=== PATIENT | female | born 1950 | race Caucasian/White ===

== ENCOUNTER 2020-07-13 07:41 | Outpatient (CLI) | payer MEDICARE, SELFPAY ==
--- NOTE | ~2020-07-13 | MM_ITS ---
EXAMINATION: MM screening marilin BI w era HISTORY: Screening TECHNIQUE: Craniocaudal and mediolateral oblique 3-D tomosynthesis images were obtained and synthetic 2-D images were generated. CAD analysis was submitted and interpreted. COMPARISON: Comparison to multiple prior studies sequentially, with oldest reviewed study dated 05/13. BREAST PARENCHYMAL COMPOSITION: The breasts are extremely dense, which lowers the sensitivity of mamm ography. FINDINGS: There is no evidence of suspicious mass, calcification, or architectural distortion to sugg est malignancy in either breast. There has been no suspicious interval change. IMPRESSION: 1. No mammographic evidence of malignancy. 2. Recommend routine screening mammography in one year. BI-RADS Category 1: Negative Reviewed, dictated and finalized at location A.
== END 2020-07-13 07:42 | disposition home or self-care (01) ==
LOC: ANHIMG 07:49
PROVIDERS: PCP Internal Medicine; Visit Provider Obstetrics & Gynecology
DX: Z12.31 Encounter for screening mammogram for malignant neoplasm of breast (principal)
CPT/HCPCS: 77063; 77067

== ENCOUNTER 2020-08-24 07:37 | Outpatient (CLI) | payer MEDICARE, SELFPAY ==
--- NOTE | ~2020-08-24 | XR_ITS ---
EXAMINATION: XR barium swallow DATE: 08/24/2020 08:20 [employer] INDICATION: Abnormal CT examination. TECHNIQUE: Thick barium contrast with gas effervescent crystals were administered orally. Fluoroscop ic images of the esophagus were obtained in various projections. The hypopharynx was also examined. T hereafter, overhead images of the thoracic esophagrus were performed. Fluroscopy time 0.4 minutesDap 0.73. 43 fluoroscopic images. FINDINGS: The esophagus is normal in caliber, without mucosal lesions or strictures. There is normal esophageal peristalsis. There is a mid esophageal diverticulum. There is no hiatal hernia. No discr eet episode of gastroesophageal reflux is seen during the course of this study. IMPRESSION: 1. Mid esophageal diverticulum. Otherwise, unremarkable esophagus.. Reviewed, dictated and finalized at location A. [employer]
== END 2020-08-24 07:38 | disposition home or self-care (01) ==
PROVIDERS: PCP Internal Medicine; Visit Provider Internal Medicine Gastroenterology
DX: R93.3 Abnormal findings on diagnostic imaging of other parts of digestive tract (principal); K57.10 Diverticulosis of small intestine without perforation or abscess without bleeding
CPT/HCPCS: 74220

== ENCOUNTER 2021-07-17 07:06 | Outpatient (CLI) | payer MEDICARE, SELFPAY ==
--- NOTE | ~2021-07-17 | MM_ITS ---
EXAMINATION: MM screening marilin BI w era HISTORY: Screening mammogram TECHNIQUE: Craniocaudal and mediolateral oblique 3-D tomosynthesis images were obtained and synthetic 2-D images were generated. CAD analysis was submitted and interpreted. COMPARISON: 11/13/2019, 07/06/2019, 07/01/2018 bilateral digital screening mammogram examinations BREAST PARENCHYMAL COMPOSITION: The breasts are extremely dense, which lowers the sensitivity of mamm ography. FINDINGS: Occasional benign calcifications. There is no evidence of suspicious mass, calcification, o r architectural distortion to suggest malignancy in either breast. There has been no suspicious inter deny change. IMPRESSION: 1. No mammographic evidence of malignancy. 2. Recommend routine screening mammography in one year. BI-RADS Category 2: Benign finding(s). Reviewed, dictated and finalized at location A.
== END 2021-07-17 07:07 | disposition home or self-care (01) ==
LOC: ANHIMG 07:09
PROVIDERS: PCP Family Medicine; Visit Provider Obstetrics & Gynecology
DX: Z12.31 Encounter for screening mammogram for malignant neoplasm of breast (principal)
CPT/HCPCS: 77063; 77067

== ENCOUNTER 2022-07-19 07:38 | Outpatient (CLI) | payer MEDICARE, SELFPAY ==
--- NOTE | ~2022-07-19 | MM_ITS ---
EXAMINATION: MM screening marilin BI w era HISTORY: Screening TECHNIQUE: Craniocaudal and mediolateral oblique 3-D tomosynthesis images were obtained and synthetic 2-D images were generated. CAD analysis was submitted and interpreted. COMPARISON: Comparison to multiple prior studies sequentially, with oldest reviewed study dated 06/25. BREAST PARENCHYMAL COMPOSITION: The breasts are extremely dense, which lowers the sensitivity of mamm ography. FINDINGS: There is a developing asymmetry centered in the upper outer quadrant of the left breast. Th e right breast is stable without evidence for malignancy. IMPRESSION: 1. Developing left breast asymmetry centered in the upper outer quadrant of the left breast. 2. Additional mammographic views and possible breast ultrasound are recommended. BI-RADS Category 0: Incomplete: Needs additional imaging evaluation. Reviewed, dictated and finalized at location A. IMPRESSION: 1. Developing left breast asymmetry centered in the upper outer quadrant of the left breast. 2. Additional mammographic views and possible breast ultrasound are recommended . BI-RADS Category 0: Incomplete: Needs additional imaging evaluation.
== END 2022-07-19 07:39 | disposition home or self-care (01) ==
PROVIDERS: PCP Family Medicine; Visit Provider Obstetrics & Gynecology
DX: Z12.31 Encounter for screening mammogram for malignant neoplasm of breast (principal); R92.8 Other abnormal and inconclusive findings on diagnostic imaging of breast
CPT/HCPCS: 77063; 77067

== ENCOUNTER 2022-08-03 10:25 | Outpatient (CLI) | payer MEDICARE, SELFPAY ==
--- NOTE | ~2022-08-03 | MMUS_ITS ---
EXAMINATION: MM diagnostic marilin LT w era, US breast LT complete HISTORY: Whole left breast ultrasound TECHNIQUE: Additional 3-D tomosynthesis images of the left breast were performed and synthetic 2-D im ages were generated. CAD analysis was submitted and interpreted. High resolution complete left breast ultrasound was performed. COMPARISON: Comparison to multiple prior studies sequentially, with oldest reviewed study dated 06/27. BREAST PARENCHYMAL COMPOSITION: The breasts are extremely dense, which lowers the sensitivity of mamm ography FINDINGS: MAMMOGRAPHIC FINDINGS: There are no discrete masses, calcifications or architectural distortion in the left breast. ULTRASOUND: Complete left breast ultrasound including all 4 quadrants in the subareolar location: Normal heterogeneous echotexture without focal solid or cystic mass. IMPRESSION: 1. No evidence for malignancy in the left breast. 2. Routine yearly screening mammogram and regular clinical breast examination are recommended. BI-RADS Category 1: Negative Reviewed, dictated and finalized at location A. IMPRESSION: 1. No evidence for malignancy in the left breast. 2. Routine yearly screening mammogram and regular clinical breast examination a re recommended. BI-RADS Category 1: Negative
[2022-08-03 12:34] LABS: Albumin Level 4.1 g/dL (3.5-5.1); Anion Gap 14 mmol/L (8-16); Blood Urea Nitrogen 13 mg/dL (7-17); Calcium 8.1 mg/dL (8.4-10.2); Carbon Dioxide 23 mmol/L (22-30); Chloride 109 mmol/L (98-107); Estimated Glomerular Filt Rate 34; Glucose 75 mg/dL (65-110); Phosphorus 6.3 mg/dL (2.5-4.5); Potassium 4.5 mmol/L (3.4-5.0); Sodium 146 mmol/L (137-145)
[2022-08-03 12:40] LABS: Creatinine Urine 22.5 mg/dL; Total Protein Urine Random 59 mg/dL; Ur Ttl Prot Creatinine Ratio 2.62 mg/mg (0-0.20)
== END 2022-08-03 10:26 | disposition home or self-care (01) ==
PROVIDERS: PCP Family Medicine; Visit Provider Obstetrics & Gynecology
DX: R92.8 Other abnormal and inconclusive findings on diagnostic imaging of breast (principal)
CPT/HCPCS: 36415; 76641; 77061; 77065; 80069; 82570; 84156; G0279

== ENCOUNTER 2022-08-17 02:31 | Day surgery (SDC) | payer MEDICARE, SELFPAY ==
--- NOTE | 2022-08-06 15:23 | PC.NURSE ---
Report to the Outpatient Waiting Room, entrance under the green pavilion located off [facility], at time _07 on date _08/17/22 . Planned Procedure Time: _914 . Time changes happen often and if your time is changed the preop area will call you the afternoon before. - You and your visitor will be asked to self-screen and do not enter if you have any COVID symptoms. - We encourage only one visitor and NO visitors under age 16 are allowed at this time. Your visitor will receive communication by the phone number that is given day of service. - The patient visitor is requested to social distance or may leave the building when not with patient due to restrictions. - A mask is required within the hospital. Patients may have clear liquids (water, carbonated beverages, clear teas, apple juice) until 3 hours prior to surgery with a maximum of 20 ounces. - No food from midnight until time of surgery - Infants may have breast milk until 4 hours before surgery, formula 6 hours prior to surgery. - Children will be allowed to drink immediately following surgery. If applicable, please bring a bottle or sippy cup to assist with drinking. Juice, water, soda, and popsicles are readily available. For infants on formula, please bring formula the day of surgery. Pacifiers are allowed. Take the following medications with a SIP of water the morning of surgery: AMLODIPINE Medications to discontinue per physician ALL VITAMINS 3 DAYS PRE OP Date to take last dose____08/13/22 Please no make-up, nail chinese, hairspray, perfume, deodorant, or body powder the day of surgery. No jewelry (including any body piercings) or valuables the day of surgery, leave them at home. Please take a shower or bath the night before, or the morning of, surgery with an antibacterial soap. Wear comfortable, loose fitting clothing. Children are encouraged to wear pajamas. - Jewelry must be removed prior to entering the operating room. Rings and piercings that are not removed may be cut off. - The hospital will not accept responsibility for valuables. - Please leave all valuables, including medications, at home the day of surgery. If you are going home after surgery, a licensed milk pickup driver must drive you home. - NO public transportation without another adult. - We recommend that an adult stay with you for 24 hours following discharge. - We also recommend that you do not drive, make important decision, drink alcoholic beverages, or take any drugs that were not prescribed by your health care provider for at least 24 hours after your discharge time. For Pediatric surgeries, we recommend two adults accompany the child home. Follow any additional instructions given to you from your surgeon. If you or anyone in your household have experienced Covid symptoms in the past week, please notify your surgeon or the nurse liaison at the phone number below for possible testing. Telephone instructions given to ___PATIENT and asked if any additional questions and then verbalized understanding. Patient advised to call surgeon office or pre surgery nurse liaison [phone] if any additional questions.
[2022-08-06 15:43] VITALS: BMI 15.5
--- NOTE | 2022-08-15 12:30 | P.HP_ITS ---
H&P: HPI History of Present Illness Date/Time: 08/15/22 12:30 Chief Complaint: High-grade dysplasia of vulva Narrative: Cyst 72-year-old female with lesion on her vulva. All local biopsy showed a high-grade dysplasia. She will undergo laser destruction as no evidence of cancer is present. Risks and benefits reviewed REPLACED BY [facility] Past Medical History Medical History (Updated 08/15/22 @ 12:33 by Du Ace MD) Anemia Former smoker GERD (gastroesophageal reflux disease) Surgical History Surgical History (Updated 09/27/19 @ 17:45 by Jo Ann Bajwa CRNA) History of esophagogastroduodenoscopy (EGD) Hx of cholecystectomy S/P left knee arthroscopy Social History Social History Years smoked: 22 Smoking status: Former smoker Tobacco type: cigarettes Second hand tobacco smoke exposure: No Smoking end date: 09/30/16 Gender identity (if verbalized by the patient): Female Spiritual care concerns: No Meds Home Medications and Allergies Home Medications Medication Instructions Recorded Confirmed Type furosemide 20 mg tablet 10 mg PO PRN PRN Edema 09/16/19 08/06/22 History lansoprazole 30 mg capsule,delayed 30 mg PO DAILY 09/16/19 08/06/22 History release amlodipine 5 mg tablet 5 mg PO DAILY 08/06/22 08/06/22 History luydnhks-ehx-imeqr ac 400 1 tablet PO EVERY OTHER DAY 08/06/22 08/06/22 History mcg-calcium carb 500 mg-vit K1 20 mcg tablet tramadol 50 mg tablet 50 mg PO TID 08/06/22 08/06/22 History Allergies Allergy/AdvReac Type Severity Reaction Status Date / Time acetaminophen Allergy Unknown Itching Verified 08/06/22 15:14 clindamycin Allergy Unknown Swelling Verified 08/06/22 15:14 methylprednisolone Allergy Unknown Hives / Verified 08/06/22 15:14 Red Face prednisone Allergy Unknown Hives / Verified 08/06/22 15:14 Red Face Exam Const: General: cooperative, healthy appearing, comfortable, thin and underweight Orientation/consciousness: oriented to person, oriented to place and oriented to time HENMT: Head: normal to inspection Resp: Effort & Inspection: normal respiratory effort Cardio: Rate: regular rate Rhythm: regular rhythm Heart sounds: S1 normal heart sound present and S2 normal heart sound present GI: Inspection: normal to inspection and scaphoid : External Female Exam: lesion (Sternal lesions seen) Bimanual exam- vagina & uterus: normal bimanual exam Assessment and Plan Assessment and plan (1) Vulvar intraepithelial neoplasia: Code(s): N90.3 - Dysplasia of vulva, unspecified Status: Acute Plan CO2 laser of this lesion
--- NOTE | 2022-08-16 13:51 | P.PNAN_ITS ---
Anes - Initial Pre Proc Eval Procedure: Operation Date: 08/17/22 09:15 Proposed Procedures p CO2 Laser of Ablation of Vulva Lesion - Du Ace MD Date/Time: 08/16/22 13:51 Surgeon: Du Ace MD Pre Op Diagnosis: vulvar lesion, high grade epithelial lesion Patient Data Age: 72 Gender: F Height: 1.57 m Weight: 38.6 kg Allergies Allergy/AdvReac Type Severity Reaction Status Date / Time acetaminophen Allergy Unknown Itching Verified 08/06/22 15:14 clindamycin Allergy Unknown Swelling Verified 08/06/22 15:14 methylprednisolone Allergy Unknown Hives / Verified 08/06/22 15:14 Red Face prednisone Allergy Unknown Hives / Verified 08/06/22 15:14 Red Face Home Medications Medication Instructions Recorded Confirmed Type furosemide 20 mg tablet 10 mg PO PRN PRN Edema 09/16/19 08/06/22 History lansoprazole 30 mg capsule,delayed 30 mg PO DAILY 09/16/19 08/06/22 History release amlodipine 5 mg tablet 5 mg PO DAILY 08/06/22 08/06/22 History ehukxmnt-vib-fmman ac 400 1 tablet PO EVERY OTHER DAY 08/06/22 08/06/22 History mcg-calcium carb 500 mg-vit K1 20 mcg tablet tramadol 50 mg tablet 50 mg PO TID 08/06/22 08/06/22 History Patient hx anesthesia problems: none Family hx anesthesia problems: none Results Review: All pre-operative results and documents have been reviewed as part of the pre- operative evaluation. [facility] Past Medical History Medical History (Updated 08/16/22 @ 13:52 by Fer Valencia MD) Anemia Former smoker GERD (gastroesophageal reflux disease) HTN (hypertension) Osteoarthritis Vulvar intraepithelial neoplasia Surgical History Surgical History (Updated 09/27/19 @ 17:45 by Jo Ann Bajwa CRNA) History of esophagogastroduodenoscopy (EGD) Hx of cholecystectomy S/P left knee arthroscopy Social History Social History Years smoked: 22 Smoking status: Former smoker Tobacco type: cigarettes Second hand tobacco smoke exposure: No Smoking end date: 09/30/16 Living arrangements: alone Gender identity (if verbalized by the patient): Female Spiritual care concerns: No Anes - Eval Final PreProcedure Day of Procedure 08/16/22 13:51 Patient weight: normal Heart: regular rate and rhythm Lungs: clear to auscultation Airway: Mallampati scale class II Neurological: alert and oriented Last oral intake: >/= 8 hours ASA classification: II Anesthetic plan: proceed Anesthesia type and monitoring: general GIVS and standard monitoring Results Review: All pre-operative results and documents have been reviewed as part of the pre- operative evaluation. Informed Consent: The patient's anesthetic plan and its attendant risks and benefits were discussed with the patient/family/POA. Questions were solicited and answers provided to the satisfaction of the patient/family/POA.
[2022-08-17] VITALS (10 sets, daily range): BP systolic 157–200; BP diastolic 73–108; PULSE 64–77; RESP 12–18; TEMP 36.2–36.4; O2SAT 98–100
--- NOTE | 2022-08-17 06:53 | WPDHPUPDATE1 ---
History and Physical Update Update Date/Time: 08/17/22 06:53 History and Physical has been reviewed, including an updated exam of the patient. There are NO changes in the patient's condition. Risks, benefits, and alternatives have been discussed and questions answered. Patient agrees to proceed with procedure.
[2022-08-17] MEDS: LACTATED RINGERS 1,000 ML 30 ML IV CONT (08:16)
[2022-08-17] MEDS: SILVER SULFADIAZINE 1% CR 50 GM JAR (*BKC) 1 APPLIC TOPICAL (09:40)
--- NOTE | 2022-08-17 09:43 | W.PM.PROC2 ---
Procedure Note - Detailed Date of Procedure 08/17/22 Pre-op Diagnosis vulvar lesion, high grade epithelial lesion Post-op Diagnosis Same Procedure Performed CO2 laser over to the Surgeon Du Ace MD Anesthesia MAC Indications this is 72 biopsy high-grade vulvar intraepithelial neoplasia Findings 2x3cm area high-grade vulvar intraepithelial neoplasia was seen along perineum and left labia Description of Procedure patient is prepped draped dorsal position. Direct anesthesia speculum placed posterior. The this was and vinegar placed perineal left the lesion was laser 10 per 2nd until it was completely desiccated blood loss was she tolerated procedure sponge needle and instrument counts were correct. Were immediate complications Estimated Blood Loss 0 Drains No Packing No Pathology None sent Complications No immediate complications Condition Stable Disposition PACU
[2022-08-17] MEDS: fentaNYL CITRATE INJ (*CRX) 100 MCG/2 ML VIAL 25 MCG IV PUSH ×4 (10:18→10:56)
[2022-08-17] MEDS: hydrALAZINE HCL 20 MG/ML VIAL 5 MG IV PUSH (10:55)
== END 2022-08-17 11:55 | disposition home or self-care (01) ==
PROVIDERS: PCP Family Medicine; Visit Provider Obstetrics & Gynecology
PROC: (CPT 56501; principal; 2022-08-17 09:15)
DX: R87.623 High grade squamous intraepithelial lesion on cytologic smear of vagina (HGSIL) (principal); I10 Essential (primary) hypertension; K21.9 Gastro-esophageal reflux disease without esophagitis; Z87.891 Personal history of nicotine dependence
CPT/HCPCS: 56501; A9270; J0360; J2405; J2704; J3010; J7120

== ENCOUNTER 2023-05-27 21:59 | Inpatient (IN) | payer MEDICARE, SELFPAY ==
--- NOTE | ~2023-05-27 | US_ITS ---
EXAMINATION: US arterial duplex LE RT DATE: 05/29/2023 11:40 INDICATION: Right groin pain post TAVR TECHNIQUE: Multiple grayscale and Doppler ultrasound images of the right groin were obtained. COMPARISON: None FINDINGS: There is an arterial stent which terminates at the bifurcation of the right common femoral artery. No hemodynamic significant stenosis within the stent, at the anastomosis or in the pelvis/proximal port ion of the right superficial femoral or profunda femoral arteries. There is a small hematoma surround ing the anastomosis. The right superficial femoral, greater saphenous and common femoral veins are al l patent with normal venous waveforms. No arterialization to suggest an AV fistula. No evident pseudo aneurysm. IMPRESSION: 1. Small hematoma without pseudoaneurysm at the anastomosis of a patent stent in the distal most righ t common femoral artery. Reviewed, dictated and finalized at location A. IMPRESSION: 1. Small hematoma without pseudoaneurysm at the anastomosis of a patent stent i n the distal most right common femoral artery.
--- NOTE | ~2023-05-27 | US_ITS ---
EXAMINATION: US venous doppler [facility] DATE: 05/28/2023 18:31 INDICATION: Status post TAVR, positive d-dimer, open lesion in the right groin. TECHNIQUE: Grayscale images without and with compression and Doppler images of the bilateral lower ex tremity veins were obtained. COMPARISON: None FINDINGS: The right common femoral vein, profunda (deep) femoral vein, femoral vein, popliteal vein, peroneal v ein, posterior tibial veins, gastrocnemius vein, and greater saphenous vein are patent. Incidental no te of a right common femoral artery stent. The left common femoral vein, profunda (deep) femoral vein, femoral vein, popliteal vein, peroneal v ein, posterior tibial veins, gastrocnemius vein, and greater saphenous vein are patent. IMPRESSION: Patent bilateral lower extremity veins. No evidence of deep venous thrombosis. Reviewed, dictated and finalized at location K.
--- NOTE | ~2023-05-27 | XR_ITS ---
Portable chest x-ray Comparison: 04/20/2014 Clinical History: Shortness of breath Findings: Possible mild interstitial edema. Probable underlying COPD.Patient is status post interval aortic valve replacement, with pacemaker device now present. Bones and soft tissues are unremarkable . Impression: Possible mild interstitial pulmonary edema. Underlying COPD. Status post interval aortic valve replacement with pacemaker device. Reviewed, dictated and finalized at [facility]. Impression: Possible mild interstitial pulmonary edema. Underlying COPD. Status post interval aortic valve replacement with pacemaker device.
--- NOTE | ~2023-05-27 | XR_ITS ---
XR shoulder RT min 2V DATE: 05/28/2023 13:24 INDICATION: Pain, bruising, swelling TECHNIQUE: 5 views COMPARISON: None FINDINGS: Soft tissue swelling, probable hematoma, lateral right shoulder area. There is prominent narrowing at the right glenohumeral joint, with anterior spurring of the glenoid p rocess, compatible with advanced right glenohumeral osteoarthritis. There is some patchy sclerosis an d cystic change of the right humeral head. Normal alignment at the right acromioclavicular joint. Diffuse osteopenia. IMPRESSION: Lateral right shoulder soft tissue swelling, likely a hematoma Severe right glenohumeral osteoarthritis Osteopenia Reviewed, dictated and finalized at location L.
--- NOTE | ~2023-05-27 | XR_ITS ---
AP view of the pelvis and AP and lateral views of the right hip Clinical history: Pain Findings: No acute fracture or dislocation is seen. Osseous alignment is anatomic. There is mild dege nerative change of both hip joints. Vascular calcifications are present. Impression: Mild degenerative change of both hip joints. Reviewed, dictated and finalized at location . Impression: Mild degenerative change of both hip joints.
--- NOTE | ~2023-05-27 | CT_ITS ---
Non-contrast CT scan of the Abdomen and Pelvis Clinical indication: Abdominal pain Technique: 2.5 mm axial scans were obtained through the abdomen and pelvis without intravenous or or al contrast. Dose reduction technique was used on this scan by utilizing automated exposure control a nd iterative reconstruction technique. The dose-length product (DLP) was 192.78 mGy-cm. COMPARISON: 01/16/2005 Findings: Images through the lung bases reveal partially imaged moderate bilateral pleural effusions with mild bibasilar atelectatic change. The liver, spleen, pancreas, and adrenals appear normal. Cholecystectomy clips are present. Kidneys a re somewhat atrophic. There are extensive atherosclerotic calcifications of the aorta and iliac vesse ls. There is no evidence of bowel obstruction. No definite evidence to suggest appendicitis. Images through the pelvis were performed. There is no evidence of ascites or lymphadenopathy. Urinary bladder unremarkable. No pelvic mass evident. Mild diffuse osseous sclerosis suggests renal osteodystrophy. Impression: Moderate bilateral pleural effusions, partially imaged. 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 Reviewed, dictated and finalized at location . Impression: Moderate bilateral pleural effusions, partially imaged. 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
--- NOTE | ~2023-05-27 | NM_ITS ---
NM lung vent and perfusion DATE: 05/28/2023 13:24 INDICATION: Shortness of breath TECHNIQUE: Ventilation study was performed with inhalation of 19.99 mCi 133 xenon, with wash-in and w ashout views. The perfusion study was performed in 8 standard projections after intravenous injection of 5.4 mCi 99 m technetium MAA. COMPARISON: None FINDINGS: Moderate diffuse bilateral air trapping is noted. Bilateral normal lung perfusion. No segmental or lobar perfusion abnormalities are noted. IMPRESSION: Bilateral air trapping suggesting obstructive airways disease No evidence of pulmonary embolism Reviewed, dictated and finalized at Location A. Reviewed, dictated and finalized at location L.
[2023-05-27 21:55] VITALS: BP 78/45
[2023-05-27 22:00] VITALS: BP 113/37; PULSE 85; RESP 18; TEMP 36.2; O2SAT 100
--- NOTE | 2023-05-27 22:11 | PM.IMHP ---
H&P: HPI History of Present Illness Date/Time: 05/27/23 22:11 Chief Complaint: chest pain Narrative: this is a 72-year-old female with past medical history significant for TAVR, chronic kidney disease, congestive heart failure, COPD/emphysema, hypertension, chronic wounds,. Patient presents as a direct admission from outside hospital where she presented due to chest pain initial results were significant for elevated troponins patient also found to be tachycardic and started on heparin drip for presumptive pulmonary embolism. Patient is a very poor historian and can contribute very little to her history in a meaningful way history is sketchy, disperse, circumstantial, tangential. Preliminary workup was significant for a potassium of 6.4, creatinine of 2.4, BUN 30. Review of Systems Review of Systems: right shoulder pain, fatigue, multiple nonhealing bilateral lower extremity wounds. [facility] Past Medical History Medical History (Updated 05/28/23 @ 04:11 by Royal Ty MD) Anemia Former smoker GERD (gastroesophageal reflux disease) HTN (hypertension) Osteoarthritis Vulvar intraepithelial neoplasia Surgical History Surgical History (Updated 10/03/22 @ 08:21 by Joselyn Erwin MA) H/O vaginal surgery removal of cancerous lesion History of esophagogastroduodenoscopy (EGD) Hx of cholecystectomy S/P left knee arthroscopy Family History Family History (Updated 05/27/23 @ 22:39 by Charlene Acuña RN) Sibling Heart attack Sibling Heart attack Mother Hypertension Father Leukemia Social History Social History (Updated 10/03/22 @ 08:32 by Joselyn Erwin MA) Smoking packs per day: 0.5 Smoking cigarettes per day: 10.0 Years smoked: 22 Smoking pack-years: 11.00 Smoking status: Former smoker Second hand tobacco smoke exposure: No Alcohol intake: never Substance use: never Substance use type: does not use Lack of Transportation: No Lack of Food: Never True Current Housing: I Have Housing Concerned About Future Housing: No Difficulty Paying Gas/Electric Bills: No Difficulty Paying for Meds: No Currently Unemployed: No Education: High School Diploma/GED Difficulty w/ Childcare or Family Care: No Living arrangements: alone Gender identity (if verbalized by the patient): Female Spiritual care concerns: No Meds Home Medications and Allergies Home Medications Medication Instructions Recorded Confirmed Type tramadol 50 mg tablet 50 mg PO QID PRN Moderate Pain 08/06/22 05/27/23 History (Scale Score 5-6) albuterol sulfate 90 mcg/actuation 2 puff inhalation Q6H 05/27/23 05/27/23 History aerosol inhaler aspirin 81 mg tablet 81 mg PO DAILY 05/27/23 05/27/23 History bumetanide 2 mg tablet 2 mg PO DAILY 05/27/23 05/27/23 History carvedilol 12.5 mg tablet 12.5 mg PO DAILY 05/27/23 05/27/23 History collagenase clostridium histo. 250 1 applic topical DAILY 05/27/23 05/27/23 History unit/gram topical ointment (Santyl) fluticasone fur. 200 mcg-umeclid 1 inh inhalation DAILY 05/27/23 05/27/23 History 62.5 mcg-vilant 25 mcg inhalat.powder (Trelegy Ellipta) naproxen sodium 220 mg capsule 220 mg PO BID PRN Mild Pain (Scale 05/27/23 05/27/23 History (Aleve) Score 1-4) sacubitril 24 mg-valsartan 26 mg 1 tablet PO DAILY 05/27/23 05/27/23 History tablet (Entresto) Allergies Allergy/AdvReac Type Severity Reaction Status Date / Time acetaminophen Allergy Mild Itching Verified 05/28/23 02:19 clindamycin Allergy Unknown Swelling Verified 02/14/23 08:33 methylprednisolone Allergy Unknown Hives / Verified 02/14/23 08:33 Red Face prednisone Allergy Unknown Hives / Verified 02/14/23 08:33 Red Face Exam Narrative: patient is laying in bed Const: General: comfortable, no acute distress, well developed, alert, awake, ill appearing and cachectic Nutritional Appearance: average body habitus Orientation/consciousness: pa
--- NOTE | 2023-05-27 22:15 | ADMGEN ---
This patient, Trisha Wright, was admitted to IMU Room 210-01 on 05/27/2023 at 2155. Patient/family oriented to hospital policies and general routines including ID bracelet, bed and alarms, visiting hours, pain management, procedures, bathroom and other care routines, personal items, smoking policy, room service/diet, and visiting hours. Information on how to activate the Rapid Response Team has been discussed. Patient/Family are encouraged to report perceived risks to care and to ask questions if they do not understand what they are told or what they should do.
[2023-05-27 22:19] VITALS: BMI 15.3
--- NOTE | 2023-05-27 22:20 | PC.NURSE ---
Patient is a direct admit from [facility] in [place] via EMS. Heparin drip running at 5mls/hr started at [place] at 1730 on 05/27/2023. Heparin drip continued, notified. Pharmacy updated when Orders for this admission were ordered and patient titrated per protocol.
[2023-05-27 22:45] VITALS: BP 124/52
[2023-05-27 23:01] LABS: Basophils Percent Auto 0.3 % (0.2-1.2); Eosinophils Percent Auto 0.3 % (0-4.4); Hematocrit 31.3 % (37.0-47.0); Hemoglobin 9.7 g/dL (12.0-15.0); Immature Granulocyte Absolute 0.02 K/mm3 (0.00-0.031); Immature Granulocyte Percent A 0.3 % (0-0.5); Lymphocytes Absolute Auto 0.98 K/mm3 (0.9-3.2); Lymphocytes Percent Auto 15.5 % (18.3-44.2); Mean Corpuscular Hemoglobin 30.6 pg (26-34); Mean Corpuscular Volume 98.7 fl (80-100); Mean Platelet Volume 9.9 fl (7.4-10.4); Monocytes Absolute Auto 0.4 K/mm3 (0.1-0.6); Monocytes Percent Auto 5.5 % (2.6-8.5); Neutrophils Absolute Auto 4.9 K/mm3 (1.3-6.7); Neutrophils Percent Auto 78.1 % (45.5-73.1); Platelet Count Result 249 k/mm3 (150-375); Red Blood Count 3.17 M/mm3 (4.2-5.4); Red Cell Distribution Width 15.2 % (11.5-14.5); White Blood Count 6.3 K/mm3 (4.5-10.0)
[2023-05-27 23:13] LABS: Prothrombin Time 13.7 Seconds (11.1-14.7)
[2023-05-27 23:14] LABS: Partial Thromboplastin Time 38.1 SECONDS (22.3-36.8)
[2023-05-27 23:26] LABS: Magnesium 1.8 mg/dL (1.6-2.3); Phosphorus 8.4 mg/dL (2.5-4.5)
[2023-05-27 23:52] LABS: Anion Gap 24 mmol/L (8-16); Blood Urea Nitrogen 34 mg/dL (7-17); Calcium 8.2 mg/dL (8.4-10.2); Carbon Dioxide 21 mmol/L (22-30); Chloride 99 mmol/L (98-107); Estimated CRCL calculation 12 ml/min; Estimated Glomerular Filt Rate 20; Glucose 137 mg/dL (65-110); Potassium 6.4 mmol/L (3.4-5.0); Sodium 144 mmol/L (137-145)
[2023-05-28] VITALS (16 sets, daily range): BP systolic 143–172; BP diastolic 53–80; PULSE 66–103; RESP 14–18; TEMP 35.7–37.1; O2SAT 97–100; BMI 16.1
--- NOTE | 2023-05-28 | ECHO_ITS ---
Patient Info Name: Trisha Wright Age: 72 years : 1950 Gender: Female Ht: 62 in Wt: 89 lbs BSA: 1.32 m2 HR: 74 bpm BP: 143 / 80 mmHg Heart Rhythm: Paced Technical Quality: Good Exam Date: 05/28/2023 10:33 AM Exam Location: [facility] Patient Status: Outpatient Admit Date: 05/27/2023 Staff Ordering Physician: Royal Ty MD [employer] Psychologist: Marcie Arenas RDCS Attending Provider: Say Nicolas MD Referring Physician: Melony BALDERRAMA; Exam Type: CA echo doppler color flow Study Info Indications R00.0 - Tachycardia, unspecified Complete two-dimensional, color flow and Doppler transthoracic echocardiogram is performed. Summary 1. Complete two-dimensional, color flow and Doppler transthoracic echocardiogram is performed. 2. Left ventricular hypertrophy with mild LV enlargement and mildly reduced systolic function ejection fraction about 40%. 3. Grade 1 diastolic noncompliance. 4. Pacemaker leads noted. 5. Normally functioning TAVR valve. 6. Mild mitral regurgitation. Left Ventricle Left ventricular chamber dimension is mildly enlarged. Left ventricular systolic function is mildly reduced, estimated at 40-45%. There is mild concentric increased left ventricular wall thickness. The left ventricular diastolic function is grade I diastolic dysfunction. Right Ventricle Right ventricular chamber dimension is normal. Linear artifact in right ventricle suggestive of catheter(s), pacemaker lead(s), or ICD lead(s). Left Atria Left atrial chamber dimension is moderately enlarged. Right Atria Right atrial chamber dimension is normal. Pulmonic Valve The pulmonic valve is not well visualized. Mitral Valve The mitral valve has normal leaflets. There is mild mitral valve regurgitation. The mitral valve annulus is mildly calcified. Tricuspid Valve The tricuspid valve leaflets are normal. Pericardium/Pleural The pericardium appears normal. Aorta The aortic root size at the sinus of Valsalva is normal. Left Ventricular Outflow Tract Name Value Normal LVOT 2D LVOT Diameter 1.8 cm LVOT Doppler LVOT Peak Gradient 5 mmHg LVOT Mean Gradient 2 mmHg LVOT VTI 20 cm LVOT VTI/AV VTI Ratio 1.0 LVOT Stroke Volume 51 ml LVOT CO 3.7 l/min LVOT CI 2.8 l/min/m2 Pulmonic Valve Name Value Normal RVOT Doppler RVOT Peak Gradient 1 mmHg PV Doppler PV Peak Gradient 1 mmHg Mitral Valve Name Value Normal MV Doppler
[2023-05-28 00:04] LABS: Troponin I 0.366 ng/mL (0.000-0.034)
[2023-05-28] MEDS: SODIUM ZIRCONIUM CYCLOSILICATE 10 GM POWD.PACK PO (00:51)
[2023-05-28] MEDS: HEPARIN SODIUM 5,000 UNITS/ML VIAL 3000 UNITS IV PUSH ×2 (00:55→07:57)
[2023-05-28] MEDS: HEPARIN SOD/D5W 100 UNITS/ML 25,000 UNITS/250 ML BAG IV CONT (00:56)
[2023-05-28] MEDS: CALCIUM GLUC 2,000 MG/NS 100ML 2,000 MG/100 ML BAG 100 MG IVPB (00:57)
[2023-05-28] MEDS: NEOMYCIN/POLYMYXIN/BACITRACIN OINTMENT 15 GM TUBE 1 APPLIC TOPICAL (01:30)
[2023-05-28] MEDS: traMADol HCL (*CRX) 50 MG TABLET PO ×3 (03:05→23:22)
[2023-05-28 07:12] LABS: Anion Gap 14 mmol/L (8-16); Blood Urea Nitrogen 36 mg/dL (7-17); Carbon Dioxide 19 mmol/L (22-30); Chloride 108 mmol/L (98-107); Estimated CRCL calculation 13 ml/min; Estimated Glomerular Filt Rate 21; Glucose 77 mg/dL (65-110); Potassium 4.6 mmol/L (3.4-5.0); Sodium 141 mmol/L (137-145)
[2023-05-28 07:21] LABS: Partial Thromboplastin Time 21.1 SECONDS (22.3-36.8)
--- NOTE | 2023-05-28 08:44 | ECG_ITS ---
Measurements Intervals Iaeger Rate: 72 P: 50 SD: 109 QRS: -82 QRSD: 151 T: 85 QT: 454 QTc: 500 Interpretive Statements ELECTRONIC VENTRICULAR PACEMAKER SINUS RHYTHM WITH ATRIAL SENSING AND VENTRICULAR PACING WITH SHORT AV DELAY ABNORMAL RHYTHM ECG NO PREVIOUS ECG AVAILABLE FOR COMPARISON Electronically Signed On 05-28-2023 12:19:01 CDT by Rodrick aSuceda M.D.
[2023-05-28 09:10] LABS: Troponin I 0.355 ng/mL (0.000-0.034)
[2023-05-28] MEDS: COLLAGENASE OINT 30 GM TUBE 1 APPLIC TOPICAL (09:47)
--- NOTE | 2023-05-28 10:05 | PM.IMPN ---
Progress Note: A&P Assessment and Plan (1) Elevated troponin: Code(s): R77.8 - Other specified abnormalities of plasma proteins Status: Acute Assessment and Plan: Patient present to the outside hospital complaints of chest pain. Troponins elevated to 0.36 but flat. Elevated troponins could be related to her acute kidney injury. No EKG in the chart either at the outside hospital or here. Will check EKG. Echocardiogram ordered. There was concern for PE given her elevated D-dimer. V/Q scan has been ordered. Cardiology has been consulted. Will check lower extremity venous Dopplers. PM interrogation. (2) Hyperkalemia: Code(s): E87.5 - Hyperkalemia Status: Acute Assessment and Plan: Patient noted to have elevated potassium at the outside hospital. Here potassium was as high as 6.4. She is on valsartan the may contribute to her hyperkalemia. She denies that is dietary related. She was treated appropriately. Repeat potassium is normal today. Continue to follow closely. (3) Acute on chronic kidney failure: Code(s): N17.9 - Acute kidney failure, unspecified; N18.9 - Chronic kidney disease, unspecified Status: Acute Assessment and Plan: Baseline creatinine here was 1.5 last July. Creatinine 2.4 on admission. She is on Entresto and Bumex. She also has a leave p.r.n. and tramadol p.r.n. for pain. She had hyperkalemia as mentioned above. She also had metabolic acidosis which has worsened today but with an improved anion gap. She has a history of CHF but currently appears euvolemic. Will start low-dose IV fluids and monitor fluid status closely. Entresto and Bumex on hold. Nephrology consulted. (4) HTN (hypertension): Code(s): I10 - Essential (primary) hypertension Status: Acute Assessment and Plan: Patient's blood pressure was reviewed on 05/28 Blood pressure reasonably well controlled. Will continue to follow. (5) Severe protein-calorie malnutrition (Vargas: less than 60% of standard weight): Code(s): E43 - Unspecified severe protein-calorie malnutrition Status: Acute Assessment and Plan: This is probably could multifactorial. Dietary consult (6) Open leg wound: Code(s): S81.809A - Unspecified open wound, unspecified lower leg, initial encounter Status: Acute Assessment and Plan: Patient has multiple bilateral lower extremity leg wounds. Is also a right groin open area probably related to the recent TAVR procedure in March. She denies that she picks at these wounds. Consider calciphylaxis. [facility] [place] [facility] the past. None appear to be concerning for cellulitis. Wound care consult. (7) CHF (congestive heart failure): Code(s): I50.9 - Heart failure, unspecified Status: Acute Assessment and Plan: Patient has a history of CHF. She is on Entresto, Bumex and Coreg on admission. No echo here to review. Euvolemic. Echocardiogram has been ordered. Cardiology consulted. She is status post TAVR. Follow up on the echo (8) COPD (chronic obstructive pulmonary disease): Code(s): J44.9 - Chronic obstructive pulmonary disease, unspecified Status: Acute Assessment and Plan: Stable. Patient no longer smokes. No wheezing. Continue Trelegy. Plan Rt shoulder pain - good ROM. No trauma. Will check xray. Confusion - patient confused on admission but better now. May be related to medications from outside hosp DVT prophylaxis -heparin Code status - DNR Subjective Date/time seen: 05/28/23 10:05 Interval history: 72yo female with HTN, CKD, CHF, recent TAVR, COPD and chronic LE wounds here for chest pain. Patient states that she is here because of right shoulder pain, lower extremity wounds and generalized weakness. She denies chest pain. She has been having shortness of breath off and on but nothing new. No focal w
--- NOTE | 2023-05-28 11:02 | PM.CNNEP ---
Assessment and Plan Assessment and plan (1) Chronic kidney disease, stage IV (severe): Code(s): N18.4 - Chronic kidney disease, stage 4 (severe) Status: Chronic Assessment and Plan: fluctuates to extremes in the last year seems to average out around 2 - 2.5mg/dl (but has been as high as 3.2mg/dl) given her reduced muscle mass, I have been concerned that her true GFR may be worse that what blood tests are alluding to.... Entresto and diuretics on hold follow trend of repeat labs and UOP (2) Hyperkalemia: Code(s): E87.5 - Hyperkalemia Status: Acute Assessment and Plan: resolved s/p medical management Entresto on hold follow repeat K+ levels (3) Open leg wound: Code(s): S81.809A - Unspecified open wound, unspecified lower leg, initial encounter Status: Acute Assessment and Plan: noted and apparently this and further LE wounds became an issue s/p TAVR she did have a femoral cut-down and apparently graft placement in right femoral artery wound care following -- possible cellulitis give her history of elevated PTH levels and elevated phosphorus, calciphylaxis is a concern (4) CHF (congestive heart failure): Code(s): I50.9 - Heart failure, unspecified Status: Chronic Assessment and Plan: chronic systolic and diastolic heart failure appears compensated at this time Cardiology following as well (5) HTN (hypertension): Code(s): I10 - Essential (primary) hypertension Status: Acute Assessment and Plan: reasonable control follow trend of hemodynamics (6) Anemia: Code(s): D64.9 - Anemia, unspecified Status: Chronic Assessment and Plan: presumably related to CKD consider PATRICIO while hospitalized follow trend of H/H (7) Generalized weakness: Code(s): R53.1 - Weakness Status: Acute Assessment and Plan: suspect to frequent/recent hospitalizations for her ongoing medical issues anemia may be playing a role as well PT/OT as tolerated I will continue follow the patient with you while she remains hospitalized and make further recommendations as deemed necessary. Thank you for allowing me to participate in the care of this patient. History of Present Illness Reason for Consult Consult date: 05/28/23 Reason for consult: chronic renal failure Chief Complaint Chief complaint: Elevated Troponin, Elevated BNP History of Present Illness Narrative: The patient is a 72-year-old female with a past medical history as outlined below who presented as a direct admission from an outside hospital for further evaluation of chest pain. At the outside hospital emergency room, her initial troponins were mildly elevated and she was noted to be tachycardic. She was initiated on a heparin drip due to concerns of possible pulmonary embolism as well. Subsequent workup and evaluation at the OSH demonstrated an elevated BUN and creatinine consistent with her known history of chronic kidney disease as well as hyperkalemia. She was subsequently received medical management for hyperkalemia with improvement by repeat labs this morning. On further questioning of the patient today, she states that she is here because of right shoulder pain, persistent lower extremity wounds, and generalized weakness. She gave no specific complaints of chest pain at this time. She does report some shortness of breath but that is a chronic issue and she feels that she is at baseline. She also complains of significant right hip pain that she associates with her previous TAVR procedure and recent surgery in that right femoral area. review of her records from the outside hospital also notes that she was coded negative, her UA was bland, and she had relative anemia with a hemoglobin of 8.8. Subsequent CT scan of the abdomen pelvis demonstrated indeterminate soft tissue fullness of the lower rectum and anal junction
--- NOTE | 2023-05-28 11:02 | P.CONNP_ITS ---
Assessment and Plan Assessment and plan (1) Chronic kidney disease, stage IV (severe): Code(s): N18.4 - Chronic kidney disease, stage 4 (severe) Status: Chronic Assessment and Plan: * fluctuates to extremes in the last year * seems to average out around 2 - 2.5mg/dl (but has been as high as 3.2mg/dl) * given her reduced muscle mass, I have been concerned that her true GFR may be worse that what blood tests are alluding to.... * Entresto and diuretics on hold * follow trend of repeat labs and UOP (2) Hyperkalemia: Code(s): E87.5 - Hyperkalemia Status: Acute Assessment and Plan: * resolved * s/p medical management * Entresto on hold * follow repeat K+ levels (3) Open leg wound: Code(s): S81.809A - Unspecified open wound, unspecified lower leg, initial encounter Status: Acute Assessment and Plan: * noted and apparently this and further LE wounds became an issue s/p TAVR * she did have a femoral cut-down and apparently graft placement in right femoral artery * wound care following -- possible cellulitis * give her history of elevated PTH levels and elevated phosphorus, calciphylaxis is a concern (4) CHF (congestive heart failure): Code(s): I50.9 - Heart failure, unspecified Status: Chronic Assessment and Plan: * chronic systolic and diastolic heart failure * appears compensated at this time * Cardiology following as well (5) HTN (hypertension): Code(s): I10 - Essential (primary) hypertension Status: Acute Assessment and Plan: * reasonable control * follow trend of hemodynamics (6) Anemia: Code(s): D64.9 - Anemia, unspecified Status: Chronic Assessment and Plan: * presumably related to CKD * consider PATRICIO while hospitalized * follow trend of H/H (7) Generalized weakness: Code(s): R53.1 - Weakness Status: Acute Assessment and Plan: * suspect to frequent/recent hospitalizations for her ongoing medical issues * anemia may be playing a role as well * PT/OT as tolerated I will continue follow the patient with you while she remains hospitalized and make further recommendations as deemed necessary. Thank you for allowing me to participate in the care of this patient. History of Present Illness Reason for Consult Consult date: 05/28/23 Reason for consult: chronic renal failure Chief Complaint Chief complaint: Elevated Troponin, Elevated BNP History of Present Illness Narrative: The patient is a 72-year-old female with a past medical history as outlined below who presented as a direct admission from an outside hospital for further evaluation of chest pain. At the outside hospital emergency room, her initial troponins were mildly elevated and she was noted to be tachycardic. She was initiated on a heparin drip due to concerns of possible pulmonary embolism as well. Subsequent workup and evaluation at the OSH demonstrated an elevated BUN and creatinine consistent with her known history of chronic kidney disease as well as hyperkalemia. She was subsequently received medical management for hyperkalemia with improvement by repeat labs this morning. On further questioning of the patient today, she states that she is here because of right shoulder pain, persistent lower extremity wounds, and generalized weakness. She gave no specific complaints of chest pain at this time. She does report some shortness of breath but that is a chronic issue and she feels that she is at baseline. She also complai
[2023-05-28] MEDS: SODIUM BICARBONATE TAB 325 MG TABLET PO (11:14)
[2023-05-28] MEDS: carvediloL 6.25 MG TABLET PO ×2 (11:14→21:37)
[2023-05-28] MEDS: ASPIRIN 81 MG ENTERIC TABLET PO (11:14)
[2023-05-28] MEDS: FLUTICASONE/UMECLIDIN/VILANTER 200-62.5-25 MCG ELLIPTA 1 PUFF INHALATION (11:16)
[2023-05-28 11:31] LABS: Alanine Aminotransferase 15 U/L (6-35); Albumin Level 3.1 g/dL (3.5-5.1); Alkaline Phosphatase 103 U/L (38-126); Aspartate Amino Transferase 33 U/L (14-36); Bilirubin,Total 1.8 mg/dL (0.2-1.3); Phosphorus 7.9 mg/dL (2.5-4.5)
--- NOTE | 2023-05-28 11:37 | PM.CNCAR ---
Assessment and Plan Assessment and plan (1) Elevated troponin: Code(s): R77.8 - Other specified abnormalities of plasma proteins Status: Acute Plan This is a very cachectic appearing 72-year-old lady who has worsening of chronic kidney disease and probably has elevated troponin levels are flat on the basis of that. If the history she is providing to me is accurate she is known not to have coronary artery disease as part of her TAVR workup that was done early this year at another hospital. 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 There is no need to in my opinion to conduct the ischemia workup at this hospital since she clearly and aggressive workup at [facility] prior to her aortic valve replacement. It would be of some interest/utility to obtain those records we have made that effort but so far have been unsuccessful. She is extremely weak and cachectic obviously these are not acute problems Rodrick Sauceda MD [facility] History of Present Illness History of Present Illness Consult date/time: 05/28/23 11:37 Reason For Visit: Elevated Troponin, Elevated BNP Narrative: This is a very ill, complex 72-year-old woman I am seeing at the request of the hospitalist because of troponin levels that are elevated above reference normal range. She is unknown to me prior to this encounter and receives most of her medical care at [facility] in [facility] with physicians in the [facility] network. For [facility] [place] [facility] because of symptoms of generalized weakness inability to get up and was sent to this hospital's emergency room for evaluation where she was admitted. She states that the principal reason she came into the hospital was because of extreme weakness and inability to stand up on her legs and ambulate for fear of falling. She not reporting any significant chest pain worsening shortness of breath orthopnea PND or edema. Troponin levels were sampled in the ER elevated flat at 0.3. She also has significant renal insufficiency with an EGFR of 21. Apparently she has chronic hypertensive nephrosclerosis with chronic kidney disease and does follow with Nephrology at this hospital. The remainder of her medical care is elsewhere as mentioned above. 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 She on x-ray has a biventricular pacing device. She does state that at the time of her TAVR workup she was found not to have any coronary disease. She also carries the diagnosis of chronic emphysema. She smoked cigarettes lightly but stopped many years ago. The patient's electrocardiogram shows sinus rhythm with atrial sensing and ventricular pacing with biventricular pacing. In this setting I am seeing her in consultation. Review of Systems Constitutional: Constitutional: Reports fatigue and Reports lethargy Eyes: Eyes: Reports no additional eye complaints ENT: Reports system reviewed and no additional complaints, except as documented Cardiovascular: Cardiovascular: Reports no additional cardiovascular complaints Respiratory: Respiratory: Reports dyspnea Gastrointestinal: Gastrointestinal: Reports no additional gastrointestinal complaints Musculoskeletal: Musculoskeletal: Reports back pain Integumentary/Breasts: Skin/Breast: Reports system reviewed and no additional complaints, except as docu Neurologic: Reports system reviewed and no additional complaints, except as documented Endocrine: Endocrine: Reports no additional endocrine complaints Hematologic/Lymphatic: Hematologic/Lymphatic: Repor
[2023-05-28] MEDS: SODIUM CHLORIDE 0.9% IV 1,000 ML 60 ML IV CONT (13:41)
[2023-05-28] MEDS: oxyCODONE HCL (*CRX) 2.5 MG TAB IR PO (13:52)
[2023-05-28 15:22] LABS: Partial Thromboplastin Time 90.3 SECONDS (22.3-36.8)
[2023-05-29] VITALS (14 sets, daily range): BP systolic 143–193; BP diastolic 52–78; PULSE 66–91; RESP 16–24; TEMP 36–37.3; O2SAT 95–100
[2023-05-29 05:03] LABS: Basophils Percent Auto 0.3 % (0.2-1.2); Eosinophils Absolute Auto 0.1 K/mm3 (0-0.3); Hematocrit 24.1 % (37.0-47.0); Hemoglobin 7.4 g/dL (12.0-15.0); Immature Granulocyte Absolute 0.03 K/mm3 (0.00-0.031); Immature Granulocyte Percent A 0.5 % (0-0.5); Lymphocytes Absolute Auto 0.95 K/mm3 (0.9-3.2); Lymphocytes Percent Auto 15.6 % (18.3-44.2); Mean Corpuscular HGB Conc 30.7 g/dl (32-36); Mean Corpuscular Volume 97.6 fl (80-100); Mean Platelet Volume 10.2 fl (7.4-10.4); Monocytes Absolute Auto 0.5 K/mm3 (0.1-0.6); Monocytes Percent Auto 7.9 % (2.6-8.5); Neutrophils Absolute Auto 4.5 K/mm3 (1.3-6.7); Neutrophils Percent Auto 74.7 % (45.5-73.1); Platelet Count Result 218 k/mm3 (150-375); Red Blood Count 2.47 M/mm3 (4.2-5.4); White Blood Count 6.1 K/mm3 (4.5-10.0)
[2023-05-29 05:08] LABS: Alanine Aminotransferase 11 U/L (6-35); Albumin Level 2.9 g/dL (3.5-5.1); Alkaline Phosphatase 89 U/L (38-126); Anion Gap 10 mmol/L (8-16); Aspartate Amino Transferase 33 U/L (14-36); Bilirubin Indirect 0.1 mg/dL (0-1.1); Bilirubin,Total 1.2 mg/dL (0.2-1.3); Blood Urea Nitrogen 35 mg/dL (7-17); Calcium 7.4 mg/dL (8.4-10.2); Carbon Dioxide 19 mmol/L (22-30); Chloride 110 mmol/L (98-107); Estimated CRCL calculation 13 ml/min; Estimated Glomerular Filt Rate 22; Glucose 76 mg/dL (65-110); Magnesium 1.8 mg/dL (1.6-2.3); Phosphorus 6.9 mg/dL (2.5-4.5); Potassium 4.2 mmol/L (3.4-5.0); Sodium 139 mmol/L (137-145)
--- NOTE | 2023-05-29 10:02 | PM.PNCARD ---
Progress Note: A&P Assessment and Plan (1) Elevated troponin: Code(s): R77.8 - Other specified abnormalities of plasma proteins Status: Acute Assessment and Plan: Unlikely related to ACS. Follow-up with the primary professor of sport management with Dhiraj Anderson (2) Acute on chronic kidney failure: Code(s): N17.9 - Acute kidney failure, unspecified; N18.9 - Chronic kidney disease, unspecified Status: Acute Assessment and Plan: Improving with creatinine still above normal for her but it is better electrolytes have improved (3) S/P TAVR (transcatheter aortic valve replacement): Code(s): Z95.2 - Presence of prosthetic heart valve Status: Acute Assessment and Plan: No significant murmurs appreciated (4) Right groin pain: Code(s): R10.31 - Right lower quadrant pain Status: Acute Assessment and Plan: Given her recent TAVR and groin pain, will order a right groin arterial Doppler ultrasound Subjective Date/time seen: 05/29/23 10:02 Interval history: 72yo female with HTN, CKD, CHF, recent TAVR, COPD and chronic LE wounds here for chest pain. Date of service 05/29/2023: Multitude of complaints including groin pain, leg wounds, weakness and listlessness. No chest pain Review of Systems Constitutional: Constitutional: Denies body ache(s), Reports fatigue and Reports lethargy ENT: Reports Normal hearing present Cardiovascular: Cardiovascular: Denies chest pain Respiratory: Respiratory: Denies hemoptysis Genitourinary: Genitourinary: Denies hematuria Integumentary/Breasts: Skin/Breast: Reports wounds Hematologic/Lymphatic: Hematologic/Lymphatic: Denies easy bleeding Exam Const: Other: Thin very cachectic appearing elderly lady appears older than her stated age in no distress. HENMT: Mouth: Yes moist mucous membranes Eyes: Sclera: sclerae normal Neck: Neck: supple Other: No venous distention is present carotid impulses are intact bilaterally Resp: Effort & Inspection: normal respiratory effort Other: Tubular breath sounds in both lung lu no rales no wheezing Cardio: Rate: regular rate Rhythm: regular rhythm Other: Very soft systolic murmur at the left sternal border without significant radiation no diastolic GI: Auscultation: normal bowel sounds Skin: General skin exam: normal color Neuro: Other: Alert and orient Extrem: Other: Wasted and very thin, no edema Objective Data Vital Signs Vital Signs: Vital Signs - 24 hr 05/28/23 11:14 05/28/23 12:00 05/28/23 12:00 Temperature 37.1 C Pulse Rate 75 75 76 Respiratory Rate 18 Blood Pressure 148/64 H Pulse Oximetry 100 Oxygen Delivery 05/28/23 14:00 05/28/23 16:00 05/28/23 16:00 Temperature 36.9 C Pulse Rate 82 103 H 90 Respiratory Rate 18 Blood Pressure 145/71 H Pulse Oximetry 97 Oxygen Delivery 05/28/23 18:00 05/28/23 19:24 05/28/23 21:37 Temperature 37.0 C Pulse Rate 77 86 79 Respiratory Rate 16 Blood Pressure 149/69 H Pulse Oximetry 99 Oxygen Delivery 05/28/23 20:00 05/28/23 23:22 05/29/23 00:00 Temperature 36.4 C Pulse Rate 79 81 81 Respiratory Rate 16 16 16 Blood Pressure 153/69 H Pulse Oximetry 99 98 98 Oxygen Delivery Room Air Room Air 05/29/23 04:00 05/28/23 20:00 05/28/23 22:00 Temperature 36.6 C Pulse Rate 72 79 79 Respiratory Rate 16 Blood Pressure 147/52 H Pulse Oximetry 98 Oxygen Delivery 05/29/23 00:00 05/29/23 02:00 05/29/23 04:00 Temperature Pulse Rate 72 69 72 Respiratory Rate Blood Pressure Pulse Oximetry Oxygen Delivery 05/29/23 06:00 05/29/23 04:00 05/29/23 08:00 Temperature 36.0 C L Pulse Rate 70 70 81 Respiratory Rate 16 16 Blood Pressure 162/60 H Pulse Oximetry 98 100 Oxygen Delivery Room Air Intake/Output Intake/Output: Intake & Output 05/26/23 05/27/23 05/28/23 05/29/23 23:59 23:59
[2023-05-29] MEDS: COLLAGENASE OINT 30 GM TUBE 1 APPLIC TOPICAL (10:25)
[2023-05-29] MEDS: carvediloL 6.25 MG TABLET PO ×2 (10:25→21:16)
[2023-05-29] MEDS: ASPIRIN 81 MG ENTERIC TABLET PO (10:25)
[2023-05-29] MEDS: SODIUM BICARBONATE TAB 325 MG TABLET PO (10:26)
[2023-05-29] MEDS: FLUTICASONE/UMECLIDIN/VILANTER 200-62.5-25 MCG ELLIPTA 1 PUFF INHALATION (10:29)
--- NOTE | 2023-05-29 10:39 | PM.IMPN ---
Progress Note: A&P Assessment and Plan (1) Elevated troponin: Code(s): R77.8 - Other specified abnormalities of plasma proteins Status: Acute Assessment and Plan: Patient presents to the outside hospital complaints of chest pain. Troponins elevated to 0.36 but flat. Elevated troponins could be related to her acute kidney injury. EKG here showing paced rhythm. Echo showing EF 40% with Grade I diastolic dysfunction and mild MR. Normally functioning TAVR. There was concern for PE given her elevated D-dimer. V/Q scan negative for PE. LE venous doppler negative for DVT. Cardiology was consulted but unlikely ACS. (2) Hyperkalemia: Code(s): E87.5 - Hyperkalemia Status: Acute Assessment and Plan: Patient noted to have elevated potassium at the outside hospital. Here potassium was 6.4. She is on valsartan the may contribute to her hyperkalemia. She was treated appropriately. Repeat potassium normalized and has remained stable. Continue to follow closely. (3) Acute on chronic kidney failure: Code(s): N17.9 - Acute kidney failure, unspecified; N18.9 - Chronic kidney disease, unspecified Status: Acute Assessment and Plan: Baseline creatinine here was 1.5 last July. Creatinine 2.4 on admission. She is on Entresto and Bumex. She also has Aleve p.r.n. and tramadol p.r.n. for pain. She had hyperkalemia as mentioned above. She also had metabolic acidosis which stable but with an improved anion gap. She has a history of CHF but currently appears euvolemic. Cr 2.2. Discussed with nephrology who felt baseline Cr around 2.0 Will continue low-dose IV fluids and oral bicarb. Entresto and Bumex on hold. Nephrology following (4) HTN (hypertension): Code(s): I10 - Essential (primary) hypertension Status: Acute Assessment and Plan: Patient's blood pressure was reviewed on 05/29 Blood pressure elevated at times Will continue to follow. (5) Severe protein-calorie malnutrition (Vargas: less than 60% of standard weight): Code(s): E43 - Unspecified severe protein-calorie malnutrition Status: Acute Assessment and Plan: Severre protein calorie malnutrition related to inadequate energy intake as evidenced by NFPE findings of severe muscle wasting adn SQ fat loss. This is probably could multifactorial. Supplements added. (6) Open leg wound: Code(s): S81.809A - Unspecified open wound, unspecified lower leg, initial encounter Status: Acute Assessment and Plan: Patient has multiple bilateral lower extremity leg wounds. Is also a right groin open area probably related to the recent TAVR procedure in March. She denies that she picks at these wounds. Consider calciphylaxis. [facility] [place] in the past. None appear to be concerning for cellulitis. Wound care consulted and following. Discussed with nephrology who was also concerned for calciphylaxis. Also, the patient has known hyperparathyroidism but no longer follows with endocrinology. Continue current wound care. (7) CHF (congestive heart failure): Code(s): I50.9 - Heart failure, unspecified Status: Acute Assessment and Plan: Patient has chronic systolic and diastolic CHF. She was on Entresto, Bumex and Coreg on admission. Echo as mentioned above. CXR showing possible mild interstitial pulmonary edema. BNP elevated at outside hospital. She appears clinically euvolemic. Cardiology following and appreciate their input. She is status post TAVR. Also discovered to have a graft to the fight femoral artery. Plan to check right femoral artery US. (8) COPD (chronic obstructive pulmonary disease): Code(s): J44.9 - Chronic obstructive pulmonary disease, unspecified Status: Acute Assessment and Plan: Stable. Patient no longer smokes. No wheezing. Continue Trelegy. Plan RLQ Abdominal pain - CT scan by re
--- NOTE | 2023-05-29 11:29 | P.CDI_ITS ---
CDI Query Clarification Request Documented history of CHF. CHF noted in the assessment and plan. Entresto, Bumex and Coreg all listed as home medications. Interstitial pulmonary edema noted on the 05/28/23 chest xray. Please specify type and acuity of heart failure if known. * Acute * Chronic * Acute on Chronic * Unknown * Systolic * Diastolic * Combined Systolic and Diastolic * Unknown
[2023-05-29] MEDS: traMADol HCL (*CRX) 50 MG TABLET PO ×3 (11:57→23:36)
--- NOTE | 2023-05-29 13:36 | PM.PNNEP ---
Progress Note: A&P Assessment and Plan (1) Chronic kidney disease, stage IV (severe): Code(s): N18.4 - Chronic kidney disease, stage 4 (severe) Status: Chronic Assessment and Plan: fluctuates to extremes in the last year seems to average out around 2 - 2.5mg/dl (but has been as high as 3.2mg/dl) given her reduced muscle mass, I have been concerned that her true GFR may be worse that what blood tests are alluding to.... Entresto and diuretics on hold follow trend of repeat labs and UOP (2) Hyperkalemia: Code(s): E87.5 - Hyperkalemia Status: Acute Assessment and Plan: resolved s/p medical management Entresto on hold follow repeat K+ levels (3) Open leg wound: Code(s): S81.809A - Unspecified open wound, unspecified lower leg, initial encounter Status: Acute Assessment and Plan: noted and apparently this as well as further LE wounds became an issue s/p TAVR she apparently had a right common femoral artery endarterectomy and repair with PTFE interposition graft at same time as TAVR (on 04/17/23) right groin ultrasound ordered wound care following -- possible cellulitis as well?? give her history of elevated PTH levels and elevated phosphorus, calciphylaxis is a concern as well will consult Dr. Dudley to assess and consider biopsy recheck PTH (4) CHF (congestive heart failure): Code(s): I50.9 - Heart failure, unspecified Status: Chronic Assessment and Plan: chronic systolic and diastolic heart failure appears compensated at this time admission CXR with possible mild interstitial pulmonary edema Cardiology following as well (5) HTN (hypertension): Code(s): I10 - Essential (primary) hypertension Status: Acute Assessment and Plan: reasonable control follow trend of hemodynamics (6) Anemia: Code(s): D64.9 - Anemia, unspecified Status: Chronic Assessment and Plan: presumably related to CKD possible dilution from IVFs(?) start PATRICIO while hospitalized check iron studies follow trend of H/H (7) Generalized weakness: Code(s): R53.1 - Weakness Status: Acute Assessment and Plan: suspect to frequent/recent hospitalizations for her ongoing medical issues anemia may be playing a role as well PT/OT as tolerated Long and extensive discussion (> 20 minutes) with regarding to her above issues and plan of care as outlined. Will continue to follow. Subjective Date/time seen: 05/29/23 13:36 Interval history: Follow-up for chronic kidney disease. Renal function stable if not a bit better with gentle IVF hydration although noted drop in H/H by AM labs; still endorses RLQ/right hip pain as well as right shoulder pain at the time of my visit; she states that she feels that these issues are not being adequately addressed and is thinking of leaving the hospital tomorrow; no acute distress noted. Exam Narrative: General: elderly, frail and chronically ill-appearing female in NAD Heart: normal S1 and S2; no rub Lungs: clear to auscultation Abdomen: soft, mild RLQ pain, nondistended, positive bowel sounds Extremities: no cyanosis or clubbing; no edema Skin: right groin and bilateral LE dressings in place Objective Data Vital Signs Vital Signs: Vital Signs Temp Pulse Resp BP Pulse Ox O2 Del Method 05/29/23 12:00 97.9 F 76 24 H 169/61 H 100 05/29/23 10:25 76 05/29/23 08:00 96.8 F L 81 16 162/60 H 100 05/29/23 04:00 70 16 98 Room Air 05/29/23 06:00 70 05/29/23 04:00 72 05/29/23 02:00 69 05/29/23 00:00 72 05/28/23 22:00 79 05/28/23 20:00 79 05/29/23 04:00 97.8 F 72 16 147/52 H 98 05/29/23 00:00 81 16 98 Room Air 05/28/23 23:22 97.6 F 81 16 153/69 H 98 05/28/23 20:00 79 16 99 Room Air 05/28/23 21:37 79 05/28/23 19:24 98.6 F 86
--- NOTE | 2023-05-29 13:36 | P.PNNP_ITS ---
Progress Note: A&P Assessment and Plan (1) Chronic kidney disease, stage IV (severe): Code(s): N18.4 - Chronic kidney disease, stage 4 (severe) Status: Chronic Assessment and Plan: * fluctuates to extremes in the last year * seems to average out around 2 - 2.5mg/dl (but has been as high as 3.2mg/dl) * given her reduced muscle mass, I have been concerned that her true GFR may be worse that what blood tests are alluding to.... * Entresto and diuretics on hold * follow trend of repeat labs and UOP (2) Hyperkalemia: Code(s): E87.5 - Hyperkalemia Status: Acute Assessment and Plan: * resolved * s/p medical management * Entresto on hold * follow repeat K+ levels (3) Open leg wound: Code(s): S81.809A - Unspecified open wound, unspecified lower leg, initial encounter Status: Acute Assessment and Plan: * noted and apparently this as well as further LE wounds became an issue s/p TAVR * she apparently had a right common femoral artery endarterectomy and repair with PTFE interposition graft at same time as TAVR (on 04/17/23) * right groin ultrasound ordered * wound care following -- possible cellulitis as well?? * give her history of elevated PTH levels and elevated phosphorus, calciphylaxis is a concern as well * will consult Dr. Dudley to assess and consider biopsy * recheck PTH (4) CHF (congestive heart failure): Code(s): I50.9 - Heart failure, unspecified Status: Chronic Assessment and Plan: * chronic systolic and diastolic heart failure * appears compensated at this time * admission CXR with possible mild interstitial pulmonary edema * Cardiology following as well (5) HTN (hypertension): Code(s): I10 - Essential (primary) hypertension Status: Acute Assessment and Plan: * reasonable control * follow trend of hemodynamics (6) Anemia: Code(s): D64.9 - Anemia, unspecified Status: Chronic Assessment and Plan: * presumably related to CKD * possible dilution from IVFs(?) * start PATRICIO while hospitalized * check iron studies * follow trend of H/H (7) Generalized weakness: Code(s): R53.1 - Weakness Status: Acute Assessment and Plan: * suspect to frequent/recent hospitalizations for her ongoing medical issues * anemia may be playing a role as well * PT/OT as tolerated Long and extensive discussion (> 20 minutes) with regarding to her above issues and plan of care as outlined. Will continue to follow. Subjective Date/time seen: 05/29/23 13:36 Interval history: Follow-up for chronic kidney disease. Renal function stable if not a bit better with gentle IVF hydration although noted drop in H/H by AM labs; still endorses RLQ/right hip pain as well as right shoulder pain at the time of my visit; she states that she feels that these issues are not being adequately addressed and is thinking of leaving the hospital tomorrow; no acute distress noted. Exam Narrative: General: elderly, frail and chronically ill-appearing female in NAD Heart: normal S1 and S2; no rub Lungs: clear to auscultation Abdomen: soft, mild RLQ pain, nondistended, positive bowel sounds Extremities: no cyanosis or clubbing; no edema Skin: right groin and bilateral LE dressings in place Objective Data Vital Signs Vital Signs: Vital Signs
[2023-05-29] MEDS: oxyCODONE HCL (*CRX) 2.5 MG TAB IR PO ×2 (17:22→21:46)
--- NOTE | 2023-05-29 20:30 | PC.NURSE ---
Patient refuses IV fluids.
[2023-05-29] MEDS: ACETAMINOPHEN 325 MG TABLET 650 MG PO (21:16)
[2023-05-30] VITALS (9 sets, daily range): BP systolic 130–151; BP diastolic 63–94; PULSE 65–88; RESP 16; TEMP 35.8–36.7; O2SAT 100
[2023-05-30] MEDS: ACETAMINOPHEN 325 MG TABLET 650 MG PO (02:30)
[2023-05-30] MEDS: oxyCODONE HCL (*CRX) 2.5 MG TAB IR PO ×2 (02:30→17:09)
[2023-05-30 04:54] LABS: Basophils Percent Auto 0.2 % (0.2-1.2); Eosinophils Percent Auto 0.5 % (0-4.4); Hematocrit 24.5 % (37.0-47.0); Hemoglobin 7.2 g/dL (12.0-15.0); Immature Granulocyte Absolute 0.03 K/mm3 (0.00-0.031); Immature Granulocyte Percent A 0.5 % (0-0.5); Lymphocytes Absolute Auto 0.95 K/mm3 (0.9-3.2); Lymphocytes Percent Auto 16.2 % (18.3-44.2); Mean Corpuscular HGB Conc 29.4 g/dl (32-36); Mean Corpuscular Hemoglobin 29.8 pg (26-34); Mean Corpuscular Volume 101.2 fl (80-100); Mean Platelet Volume 10.1 fl (7.4-10.4); Monocytes Absolute Auto 0.5 K/mm3 (0.1-0.6); Monocytes Percent Auto 8.9 % (2.6-8.5); Neutrophils Absolute Auto 4.3 K/mm3 (1.3-6.7); Neutrophils Percent Auto 73.7 % (45.5-73.1); Platelet Count Result 214 k/mm3 (150-375); Red Blood Count 2.42 M/mm3 (4.2-5.4); Red Cell Distribution Width 15.3 % (11.5-14.5); White Blood Count 5.9 K/mm3 (4.5-10.0)
[2023-05-30 05:10] LABS: Alanine Aminotransferase 11 U/L (6-35); Albumin Level 2.8 g/dL (3.5-5.1); Alkaline Phosphatase 87 U/L (38-126); Anion Gap 11 mmol/L (8-16); Aspartate Amino Transferase 33 U/L (14-36); Bilirubin,Total 0.8 mg/dL (0.2-1.3); Blood Urea Nitrogen 36 mg/dL (7-17); Calcium 7.5 mg/dL (8.4-10.2); Carbon Dioxide 17 mmol/L (22-30); Chloride 111 mmol/L (98-107); Estimated CRCL calculation 13 ml/min; Estimated Glomerular Filt Rate 22; Glucose 89 mg/dL (65-110); Potassium 3.7 mmol/L (3.4-5.0); Sodium 139 mmol/L (137-145)
[2023-05-30 05:27] LABS: Burr Cells 1+ (NORMAL); Ovalocytes 1+ (NORMAL); Platelet Estimate Adequate (Adequate); Schistocytes None Seen (NORMAL)
[2023-05-30 05:49] LABS: Hepatitis B Surface Antigen Negative (Negative)
--- NOTE | 2023-05-30 05:51 | PC.NURSE ---
Report given to Rosalba VENCES. All patients belongings gathered.
[2023-05-30] MEDS: traMADol HCL (*CRX) 50 MG TABLET PO ×3 (05:56→20:24)
[2023-05-30 06:11] LABS: Hepatitis B Surface Anti Res Positive
[2023-05-30] MEDS: FLUTICASONE/UMECLIDIN/VILANTER 200-62.5-25 MCG ELLIPTA 1 PUFF INHALATION (09:08)
[2023-05-30] MEDS: ASPIRIN 81 MG ENTERIC TABLET PO (09:44)
[2023-05-30] MEDS: carvediloL 6.25 MG TABLET PO ×2 (09:44→20:21)
[2023-05-30] MEDS: SODIUM BICARBONATE TAB 650 MG TABLET PO ×2 (09:45→17:09)
[2023-05-30] MEDS: COLLAGENASE OINT 30 GM TUBE 1 APPLIC TOPICAL (09:45)
--- NOTE | 2023-05-30 12:41 | PCNFU ---
Nutrition Follow-Up Complete: Severe protein calorie malnutrition related to inadequate energy intake as evidenced by NFPE findings of severe muscle wasting and subcutaneous fat loss. Goal:Diet order, supplements PO Intake greater than 50% of meals Pt is meeting goal. Continue with current goal Pt current nutrition is Regular. Nutrition recommendation: continue with current plan of care Last recorded weight is 38.5 kg. Bowel Motility: +BM 05/28 Labs Reviewed: Hgb:9.7, HCT:31.3, GFR:21, BUN:36, Cr:2.3, Phos:7.9 Meds Noted: zofran, lovenox Skin: No pressure injuries Additional Notes: Pt diet upgraded to regular, nutrition ice cream cups and Ensure Enlive BID ordered. Intake charted at 50-100% at this time. Continue to encourage good po intake. Monitor for diet orders, intake, wt, labs. Follow up in 7 days.
--- NOTE | 2023-05-30 13:43 | P.PNNP_ITS ---
Progress Note: A&P Assessment and Plan (1) Chronic kidney disease, stage IV (severe): Code(s): N18.4 - Chronic kidney disease, stage 4 (severe) Status: Chronic Assessment and Plan: * fluctuates to extremes in the last year * seems to average out around 2 - 2.5mg/dl (but has been as high as 3.2mg/dl) * given her reduced muscle mass, I have been concerned that her true GFR may be worse that what blood tests are alluding to.... * Entresto and diuretics on hold * on sodium bicarbonate for acidosis * follow trend of repeat labs and UOP (2) Hyperkalemia: Code(s): E87.5 - Hyperkalemia Status: Acute Assessment and Plan: * resolved * s/p medical management * Entresto on hold * follow repeat K+ levels (3) Open leg wound: Code(s): S81.809A - Unspecified open wound, unspecified lower leg, initial encounter Status: Acute Assessment and Plan: * noted and apparently this as well as further LE wounds became an issue s/p TAVR * she apparently had a right common femoral artery endarterectomy and repair with PTFE interposition graft at same time as TAVR (on 04/17/23) * right groin ultrasound results noted * wound care following * give her history of elevated PTH levels and elevated phosphorus, calciphylaxis is a concern as well * consulted Dr. Dudley to assess and consider biopsy * PTH noted to be quite elevated -- will start calcitriol (4) CHF (congestive heart failure): Code(s): I50.9 - Heart failure, unspecified Status: Chronic Assessment and Plan: * chronic systolic and diastolic heart failure * appears compensated at this time * admission CXR with possible mild interstitial pulmonary edema * Cardiology following as well (5) HTN (hypertension): Code(s): I10 - Essential (primary) hypertension Status: Acute Assessment and Plan: * reasonable control * follow trend of hemodynamics (6) Anemia: Code(s): D64.9 - Anemia, unspecified Status: Chronic Assessment and Plan: * presumably related to CKD * possible dilution from IVFs(?) * on PATRICIO while hospitalized * check iron studies * follow trend of H/H (7) Generalized weakness: Code(s): R53.1 - Weakness Status: Acute Assessment and Plan: * suspect to frequent/recent hospitalizations for her ongoing medical issues * anemia may be playing a role as well * PT/OT as tolerated Will continue to follow. Subjective Date/time seen: 05/30/23 13:43 Interval history: Follow-up for chronic kidney disease. States that she seems to be feeling better at the time of my visit; feels she has more energy at this time; no other acute issues/events overnight or earlier this morning; asking about disharge tomorrow since she is feeling better. Exam Narrative: General: elderly, frail and chronically ill-appearing female in NAD Heart: normal S1 and S2; no rub Lungs: clear to auscultation Abdomen: soft, mild RLQ pain, nondistended, positive bowel sounds Extremities: no cyanosis or clubbing; no edema Skin: right groin and bilateral LE dressings noted Objective Data Vital Signs Vital Signs: Vital Signs Temp Pulse Resp BP Pulse Ox O2 Del Method 05/30/23 13:00 96.9 F L 70 16 151/94 H 100 05/30/23 10:54 Room Air 05/30/23 08:00 65 16 100
--- NOTE | 2023-05-30 13:43 | PM.PNNEP ---
Progress Note: A&P Assessment and Plan (1) Chronic kidney disease, stage IV (severe): Code(s): N18.4 - Chronic kidney disease, stage 4 (severe) Status: Chronic Assessment and Plan: fluctuates to extremes in the last year seems to average out around 2 - 2.5mg/dl (but has been as high as 3.2mg/dl) given her reduced muscle mass, I have been concerned that her true GFR may be worse that what blood tests are alluding to.... Entresto and diuretics on hold on sodium bicarbonate for acidosis follow trend of repeat labs and UOP (2) Hyperkalemia: Code(s): E87.5 - Hyperkalemia Status: Acute Assessment and Plan: resolved s/p medical management Entresto on hold follow repeat K+ levels (3) Open leg wound: Code(s): S81.809A - Unspecified open wound, unspecified lower leg, initial encounter Status: Acute Assessment and Plan: noted and apparently this as well as further LE wounds became an issue s/p TAVR she apparently had a right common femoral artery endarterectomy and repair with PTFE interposition graft at same time as TAVR (on 04/17/23) right groin ultrasound results noted wound care following give her history of elevated PTH levels and elevated phosphorus, calciphylaxis is a concern as well consulted Dr. Dudley to assess and consider biopsy PTH noted to be quite elevated -- will start calcitriol (4) CHF (congestive heart failure): Code(s): I50.9 - Heart failure, unspecified Status: Chronic Assessment and Plan: chronic systolic and diastolic heart failure appears compensated at this time admission CXR with possible mild interstitial pulmonary edema Cardiology following as well (5) HTN (hypertension): Code(s): I10 - Essential (primary) hypertension Status: Acute Assessment and Plan: reasonable control follow trend of hemodynamics (6) Anemia: Code(s): D64.9 - Anemia, unspecified Status: Chronic Assessment and Plan: presumably related to CKD possible dilution from IVFs(?) on PATRICIO while hospitalized check iron studies follow trend of H/H (7) Generalized weakness: Code(s): R53.1 - Weakness Status: Acute Assessment and Plan: suspect to frequent/recent hospitalizations for her ongoing medical issues anemia may be playing a role as well PT/OT as tolerated Will continue to follow. Subjective Date/time seen: 05/30/23 13:43 Interval history: Follow-up for chronic kidney disease. States that she seems to be feeling better at the time of my visit; feels she has more energy at this time; no other acute issues/events overnight or earlier this morning; asking about disharge tomorrow since she is feeling better. Exam Narrative: General: elderly, frail and chronically ill-appearing female in NAD Heart: normal S1 and S2; no rub Lungs: clear to auscultation Abdomen: soft, mild RLQ pain, nondistended, positive bowel sounds Extremities: no cyanosis or clubbing; no edema Skin: right groin and bilateral LE dressings noted Objective Data Vital Signs Vital Signs: Vital Signs Temp Pulse Resp BP Pulse Ox O2 Del Method 05/30/23 13:00 96.9 F L 70 16 151/94 H 100 05/30/23 10:54 Room Air 05/30/23 08:00 65 16 100 Room Air 05/30/23 06:51 96.4 F L 65 16 130/63 100 05/30/23 05:52 67 05/30/23 04:00 70 05/30/23 02:00 68 05/30/23 00:00 73 05/29/23 23:53 97.8 F 66 20 143/53 H 95 Intake/Output Intake/Output: Intake & Output 05/27/23 05/28/23 05/29/23 05/30/23 23:59 23:59 23:59 23:59 Intake Total 462 1170 1140 Output Total 400 Balance 462 1170 740 Meds/Results Medications: Active Medications Generic Name Dose Route Start Last Admin Trade Name Freq PRN Reason Stop Dose Admin Acetaminophen 650 mg 05/29/23 20:46 05/30/23 02:30 Acetaminophen 325 Mg Table
--- NOTE | 2023-05-30 14:25 | PM.IMPN ---
Progress Note: A&P Assessment and Plan (1) Elevated troponin: Code(s): R77.8 - Other specified abnormalities of plasma proteins Status: Acute Assessment and Plan: Patient presents to the outside hospital complaints of chest pain. Troponins elevated to 0.36 but flat. Elevated troponins could be related to her acute kidney injury. EKG here showing paced rhythm. Echo showing EF 40% with Grade I diastolic dysfunction and mild MR. Normally functioning TAVR. There was concern for PE given her elevated D-dimer. V/Q scan negative for PE. LE venous doppler negative for DVT. Cardiology was consulted but unlikely ACS. Plan for medical managment. Stop tele (2) Hyperkalemia: Code(s): E87.5 - Hyperkalemia Status: Acute Assessment and Plan: Patient noted to have elevated potassium at the outside hospital. Here potassium was 6.4. She is actually not on valsartan so hyperkalemia may be related to diet and renal failure. She was treated appropriately. Repeat potassium normalized and has remained stable. Continue to follow closely. (3) Acute on chronic kidney failure: Code(s): N17.9 - Acute kidney failure, unspecified; N18.9 - Chronic kidney disease, unspecified Status: Acute Assessment and Plan: Baseline creatinine here was 1.5 last July. Creatinine 2.4 on admission. She is not on Entresto per patient but on Bumex. She also has Aleve p.r.n. and tramadol p.r.n. for pain. She had hyperkalemia as mentioned above. She also had metabolic acidosis which is pesistent but with an improved anion gap. She has a history of CHF but currently appears euvolemic. CT A/P showing atrophic kidneys and probable renal osteodystrophy. Cr 2.2 today and stable Discussed with nephrology who felt baseline Cr around 2.0 Will continue oral bicarb. IV fluids off. Bumex on hold. Nephrology following (4) HTN (hypertension): Code(s): I10 - Essential (primary) hypertension Status: Acute Assessment and Plan: Patient's blood pressure was reviewed on 05/30 Blood pressure elevated at times but reasonable Will continue to follow. (5) Severe protein-calorie malnutrition (Vargas: less than 60% of standard weight): Code(s): E43 - Unspecified severe protein-calorie malnutrition Status: Acute Assessment and Plan: Severre protein calorie malnutrition related to inadequate energy intake as evidenced by NFPE findings of severe muscle wasting and SQ fat loss. This is probably could multifactorial. Supplements added. (6) Open leg wound: Code(s): S81.809A - Unspecified open wound, unspecified lower leg, initial encounter Status: Acute Assessment and Plan: Patient has multiple bilateral lower extremity leg wounds. There is also a right groin open area probably related to the recent TAVR procedure in March. She denies that she picks at these wounds. Consider calciphylaxis. she [facility] [place] in the past. None appear to be concerning for cellulitis. Wound care consulted and following. Discussed with nephrology who was also concerned for calciphylaxis. Also, the patient has known hyperparathyroidism with iPTH 1270 but no longer follows with endocrinology. Plan for wound biopsy to verify diagnosis. Continue current wound care. (7) CHF (congestive heart failure): Code(s): I50.9 - Heart failure, unspecified Status: Chronic Assessment and Plan: Patient has chronic systolic and diastolic CHF. She was on Bumex and Coreg on admission but was not on Entresto. Echo as mentioned above. CXR showing possible mild interstitial pulmonary edema. BNP elevated at outside hospital. She appears clinically euvolemic. Cardiology following and appreciate their input. She is status post TAVR. Also discovered to have had a graft to the fight femoral artery. Right femoral artery US shows a small hematoma without pseudoaneurysm at the an
--- NOTE | 2023-05-30 14:46 | WPDCN ---
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 Obtain incisional skin biopsy from right thigh today. Pathology has asked that the specimen be sent in a sterile container without formalin. HPI Data of Consult Date/Time: 05/30/23 14:46 Requesting Physician: Say Nicolas MD Primary Care Provider: PHYSICIAN NOT ON STAFF Consult Narrative Narrative: Trisha Wright is a 73 year old female with multiple medical concerns including renal, cardiac, endocrine issues. On this admission it is also noted that she has multiple wounds on her legs and elsewhere. These are in various states of progression. These have been lately cared for at [facility]. In view of severe renal disfunction and elevated PTH, the possibility of calciphylaxis is of concern. I have been asked to obtain a soft tissue biopsy from one of the wound areas. The patient has been advised of the need for this biopsy and has agreed. This will be done at the bedside today. She knows that this will be done with local anesthetic and could result in a wound that does not heal any better than her other wounds even though I will suture it. [facility] Past Medical History Medical History (Updated 05/30/23 @ 12:02 by Bud Phelan MD) Anemia CHF (congestive heart failure) COPD (chronic obstructive pulmonary disease) Former smoker GERD (gastroesophageal reflux disease) HTN (hypertension) Osteoarthritis Vulvar intraepithelial neoplasia Surgical History Surgical History (Updated 05/29/23 @ 10:06 by Edward Thornton MD) H/O vaginal surgery removal of cancerous lesion History of esophagogastroduodenoscopy (EGD) Hx of cholecystectomy S/P left knee arthroscopy Family History Family History (Updated 05/27/23 @ 22:39 by Charlene Acuña RN) Sibling Heart attack Sibling Heart attack Mother Hypertension Father Leukemia Social History Social History (Updated 10/03/22 @ 08:32 by Joselyn Erwin MA) Smoking packs per day: 0.5 Smoking cigarettes per day: 10.0 Years smoked: 22 Smoking pack-years: 11.00 Smoking status: Former smoker Second hand tobacco smoke exposure: No Alcohol intake: never Substance use: never Substance use type: does not use Lack of Transportation: No Lack of Food: Never True Current Housing: I Have Housing Concerned About Future Housing: No Difficulty Paying Gas/Electric Bills: No Difficulty Paying for Meds: No Currently Unemployed: No Education: High School Diploma/GED Difficulty w/ Childcare or Family Care: No Living arrangements: alone Gender identity (if verbalized by the patient): Female Spiritual care concerns: No Meds Home Medications and Allergies Home Medications Medication Instructions Recorded Confirmed Type tramadol 50 mg tablet 50 mg PO QID PRN Moderate Pain 08/06/22 05/27/23 History (Scale Score 5-6) albuterol sulfate 90 mcg/actuation 2 puff inhalation Q6H 05/27/23 05/27/23 History aerosol inhaler aspirin 81 mg tablet 81 mg PO DAILY 05/27/23 05/27/23 History bumetanide 2 mg tablet 2 mg PO DAILY 05/27/23 05/27/23 History carvedilol 12.5 mg tablet 12.5 mg PO DAILY 05/27/23 05/27/23 History collagenase clostridium histo. 250 1 applic topical DAILY 05/27/23 05/27/23 History unit/gram topical ointment (Santyl) fluticasone fur. 200 mcg-umeclid 1 inh inhalation DAILY 05/27/23 05/27/23 History 62.5 mcg-vilant 25 mcg inhalat.powder (Trelegy Ellipta) naproxen sodium 220 mg capsule 220 mg PO BID PRN Mild Pain (Scale 05/27/23 05/27/23 History (Aleve) Score 1-4) sacubitril 24 mg-valsartan 26 mg 1 tablet PO DAILY 05/27/23 05/27/23 History tablet (Entresto) Allergies Allergy/AdvReac Type Severity Reaction Status Date / Time clindamycin Allergy
--- NOTE | 2023-05-30 16:06 | W.PM.PROC2 ---
Procedure Note - Detailed Date of Procedure 05/30/23 Pre-op Diagnosis Elevated Troponin, Elevated BNP Post-op Diagnosis Same Procedure Performed Incisional biopsy of skin right anterior thigh with simple repair 2 cm. Surgeon Alejandro Dash MD Anesthesia Local Indications Chronic ulcers of legs. Description of Procedure Pt was consented. She was supine in her bed. The site was prepped with Betadine swabs. Sterile gloves were used. Local 1% with epi was instilled, 3 ml. A 11 blade was used to incise into the skin and very thin subcutaneous fat. The specimen was about 2 cm x .8 cm .. It was removed with scissors and placed in a dry sterile container. The wound was closed with simple 3-0 Prolene. I hand carried it to pathology. No complications. Estimated Blood Loss 0 Drains No Packing No Pathology Yes Complications No immediate complications Condition Stable Disposition No change
[2023-05-30] MEDS: LIDO 1%/EPINEPHRINE 1:100,000 50 ML VIAL (17:10)
[2023-05-31] MEDS: oxyCODONE HCL (*CRX) 2.5 MG TAB IR PO (02:41)
[2023-05-31 06:00] VITALS: BP 125/71; PULSE 73; RESP 16; TEMP 36.6; O2SAT 98
[2023-05-31 06:25] LABS: Basophils Percent Auto 0.3 % (0.2-1.2); Eosinophils Percent Auto 0.5 % (0-4.4); Hematocrit 25.5 % (37.0-47.0); Hemoglobin 7.8 g/dL (12.0-15.0); Immature Granulocyte Absolute 0.02 K/mm3 (0.00-0.031); Immature Granulocyte Percent A 0.3 % (0-0.5); Lymphocytes Percent Auto 12.8 % (18.3-44.2); Mean Corpuscular HGB Conc 30.6 g/dl (32-36); Mean Corpuscular Hemoglobin 30.1 pg (26-34); Mean Corpuscular Volume 98.5 fl (80-100); Mean Platelet Volume 10.1 fl (7.4-10.4); Monocytes Absolute Auto 0.4 K/mm3 (0.1-0.6); Monocytes Percent Auto 6.2 % (2.6-8.5); Neutrophils Percent Auto 79.9 % (45.5-73.1); Platelet Count Result 233 k/mm3 (150-375); Red Blood Count 2.59 M/mm3 (4.2-5.4); Red Cell Distribution Width 15.3 % (11.5-14.5); White Blood Count 6.3 K/mm3 (4.5-10.0)
[2023-05-31 06:33] LABS: Albumin Level 2.9 g/dL (3.5-5.1); Anion Gap 7 mmol/L (8-16); Blood Urea Nitrogen 36 mg/dL (7-17); Calcium 7.8 mg/dL (8.4-10.2); Carbon Dioxide 22 mmol/L (22-30); Chloride 110 mmol/L (98-107); Estimated CRCL calculation 13 ml/min; Estimated Glomerular Filt Rate 22; Glucose 104 mg/dL (65-110); Phosphorus 5.6 mg/dL (2.5-4.5); Potassium 4.1 mmol/L (3.4-5.0); Sodium 139 mmol/L (137-145)
[2023-05-31 06:51] LABS: Iron 38 ug/dL (37-170)
[2023-05-31 06:57] LABS: Percent Iron Saturation 16 % (20-50)
[2023-05-31] MEDS: FLUTICASONE/UMECLIDIN/VILANTER 200-62.5-25 MCG ELLIPTA 1 PUFF INHALATION (08:07)
[2023-05-31] MEDS: COLLAGENASE OINT 30 GM TUBE 1 APPLIC TOPICAL (09:06)
[2023-05-31] MEDS: calcitrioL 0.25 MCG CAPSULE PO (09:06)
[2023-05-31 09:07] VITALS: PULSE 76
[2023-05-31] MEDS: SODIUM BICARBONATE TAB 650 MG TABLET PO (09:07)
[2023-05-31] MEDS: ASPIRIN 81 MG ENTERIC TABLET PO (09:07)
[2023-05-31] MEDS: carvediloL 6.25 MG TABLET PO (09:07)
[2023-05-31] MEDS: DOCUSATE SODIUM 100 MG CAPSULE PO (09:08)
[2023-05-31] MEDS: traMADol HCL (*CRX) 50 MG TABLET PO (09:19)
--- NOTE | 2023-05-31 11:16 | P.PNNP_ITS ---
Progress Note: A&P Assessment and Plan (1) Chronic kidney disease, stage IV (severe): Code(s): N18.4 - Chronic kidney disease, stage 4 (severe) Status: Chronic Assessment and Plan: * fluctuates to extremes in the last year * seems to average out around 2 - 2.5mg/dl (but has been as high as 3.2mg/dl) * given her reduced muscle mass, I have been concerned that her true GFR may be worse that what blood tests are alluding to.... * Entresto and diuretics on hold * on sodium bicarbonate for acidosis * follow trend of repeat labs and UOP (2) Hyperkalemia: Code(s): E87.5 - Hyperkalemia Status: Acute Assessment and Plan: * resolved * s/p medical management * Entresto on hold * follow repeat K+ levels (3) Open leg wound: Code(s): S81.809A - Unspecified open wound, unspecified lower leg, initial encounter Status: Acute Assessment and Plan: * noted and apparently this as well as further LE wounds became an issue s/p TAVR * she apparently had a right common femoral artery endarterectomy and repair with PTFE interposition graft at same time as TAVR (on 04/17/23) * right groin ultrasound results noted * wound care following * give her history of elevated PTH levels and elevated phosphorus, calciphylaxis is a concern as well * s/p biopsy by Dr. Dash * pathology pending * PTH noted to be quite elevated -- started on calcitriol (4) CHF (congestive heart failure): Code(s): I50.9 - Heart failure, unspecified Status: Chronic Assessment and Plan: * chronic systolic and diastolic heart failure * appears compensated at this time * admission CXR with possible mild interstitial pulmonary edema * Cardiology following as well (5) HTN (hypertension): Code(s): I10 - Essential (primary) hypertension Status: Acute Assessment and Plan: * reasonable control * follow trend of hemodynamics (6) Anemia: Code(s): D64.9 - Anemia, unspecified Status: Chronic Assessment and Plan: * presumably related to CKD * possible dilution from IVFs(?) * on PATRICIO while hospitalized -- may need this as an outpatient as well * iron deficiency noted * follow trend of H/H (7) Generalized weakness: Code(s): R53.1 - Weakness Status: Acute Assessment and Plan: * suspect to frequent/recent hospitalizations for her ongoing medical issues * anemia may be playing a role as well * PT/OT as tolerated Not opposed to discharge from renal perspective if otherwise medically stable -- she can follow-up with me in clinic for further CKD management and review of skin biopsy results. Will continue to follow. Subjective Date/time seen: 05/31/23 11:16 Interval history: Follow-up for chronic kidney disease. Tolerated skin biopsy yesterday afternoon by Dr. Dash; overall, she states she feels reasonably well; states she feels a bit stronger than on admission; renal function remains relatively stable; no apparent distress voiced; no issues/events overnight or earlier this morning. Exam Narrative: General: elderly, frail and chronically ill-appearing female in NAD Heart: normal S1 and S2; no rub Lungs: clear to auscultation Abdomen: soft, mild RLQ pain, nondistended, positive bowel sounds Extremities: no cyanosis or clubbing; no edema Skin: right groin and bilateral LE dressings present Objective Data Vital Signs Vital Signs:
--- NOTE | 2023-05-31 11:16 | PM.PNNEP ---
Progress Note: A&P Assessment and Plan (1) Chronic kidney disease, stage IV (severe): Code(s): N18.4 - Chronic kidney disease, stage 4 (severe) Status: Chronic Assessment and Plan: fluctuates to extremes in the last year seems to average out around 2 - 2.5mg/dl (but has been as high as 3.2mg/dl) given her reduced muscle mass, I have been concerned that her true GFR may be worse that what blood tests are alluding to.... Entresto and diuretics on hold on sodium bicarbonate for acidosis follow trend of repeat labs and UOP (2) Hyperkalemia: Code(s): E87.5 - Hyperkalemia Status: Acute Assessment and Plan: resolved s/p medical management Entresto on hold follow repeat K+ levels (3) Open leg wound: Code(s): S81.809A - Unspecified open wound, unspecified lower leg, initial encounter Status: Acute Assessment and Plan: noted and apparently this as well as further LE wounds became an issue s/p TAVR she apparently had a right common femoral artery endarterectomy and repair with PTFE interposition graft at same time as TAVR (on 04/17/23) right groin ultrasound results noted wound care following give her history of elevated PTH levels and elevated phosphorus, calciphylaxis is a concern as well s/p biopsy by Dr. Dash pathology pending PTH noted to be quite elevated -- started on calcitriol (4) CHF (congestive heart failure): Code(s): I50.9 - Heart failure, unspecified Status: Chronic Assessment and Plan: chronic systolic and diastolic heart failure appears compensated at this time admission CXR with possible mild interstitial pulmonary edema Cardiology following as well (5) HTN (hypertension): Code(s): I10 - Essential (primary) hypertension Status: Acute Assessment and Plan: reasonable control follow trend of hemodynamics (6) Anemia: Code(s): D64.9 - Anemia, unspecified Status: Chronic Assessment and Plan: presumably related to CKD possible dilution from IVFs(?) on PATRICIO while hospitalized -- may need this as an outpatient as well iron deficiency noted follow trend of H/H (7) Generalized weakness: Code(s): R53.1 - Weakness Status: Acute Assessment and Plan: suspect to frequent/recent hospitalizations for her ongoing medical issues anemia may be playing a role as well PT/OT as tolerated Not opposed to discharge from renal perspective if otherwise medically stable -- she can follow-up with me in clinic for further CKD management and review of skin biopsy results. Will continue to follow. Subjective Date/time seen: 05/31/23 11:16 Interval history: Follow-up for chronic kidney disease. Tolerated skin biopsy yesterday afternoon by Dr. Dash; overall, she states she feels reasonably well; states she feels a bit stronger than on admission; renal function remains relatively stable; no apparent distress voiced; no issues/events overnight or earlier this morning. Exam Narrative: General: elderly, frail and chronically ill-appearing female in NAD Heart: normal S1 and S2; no rub Lungs: clear to auscultation Abdomen: soft, mild RLQ pain, nondistended, positive bowel sounds Extremities: no cyanosis or clubbing; no edema Skin: right groin and bilateral LE dressings present Objective Data Vital Signs Vital Signs: Vital Signs Temp Pulse Resp BP Pulse Ox O2 Del Method 05/31/23 11:10 97.4 F L 82 18 152/67 H 100 05/31/23 09:07 76 05/31/23 06:00 97.9 F 73 16 125/71 98 05/30/23 20:00 Room Air 05/30/23 22:00 98.1 F 88 16 132/75 100 05/30/23 20:21 72 Intake/Output Intake/Output: Intake & Output 05/28/23 05/29/23 05/30/23 05/31/23 23:59 23:59 23:59 23:59 Intake Total 462 1170 1140 0 Output Total 400 Balance 462 1170 740 0 Meds/Results Medications: Active Medications
[2023-05-31] MEDS: MAG HYDROX/AL HYDROX/SIMETH 30 ML UDC PO (11:17)
--- NOTE | 2023-05-31 13:41 | PM.DS ---
DS: Admitting Diagnosis Discharge Date 05/31/23 Admitting Diagnosis Chest pain DS: Discharge Diagnosis Discharge Diagnosis (1) Elevated troponin: Code(s): R77.8 - Other specified abnormalities of plasma proteins Status: Acute (2) Hyperkalemia: Code(s): E87.5 - Hyperkalemia Status: Acute (3) Acute on chronic kidney failure: Code(s): N17.9 - Acute kidney failure, unspecified; N18.9 - Chronic kidney disease, unspecified Status: Acute (4) HTN (hypertension): Code(s): I10 - Essential (primary) hypertension Status: Acute (5) Severe protein-calorie malnutrition (Vargas: less than 60% of standard weight): Code(s): E43 - Unspecified severe protein-calorie malnutrition Status: Acute (6) Open leg wound: Code(s): S81.809A - Unspecified open wound, unspecified lower leg, initial encounter Status: Acute (7) CHF (congestive heart failure): Code(s): I50.9 - Heart failure, unspecified Status: Chronic (8) COPD (chronic obstructive pulmonary disease): Code(s): J44.9 - Chronic obstructive pulmonary disease, unspecified Status: Acute DS: Summary Hospital Course Reason for hospitalization: 72yo female with HTN, CKD, CHF, recent TAVR, COPD and chronic LE wounds here for chest pain. Please see H&P for details. Hospital Course: Patient presents to the outside hospital complaints of chest pain.? Troponins elevated to 0.36 but flat.? Elevated troponins could be related to her acute kidney injury.? EKG here showing paced rhythm.? Echo showing EF 40% with Grade I diastolic dysfunction and mild MR. Normally functioning TAVR. There was concern for PE given her elevated D-dimer.? V/Q scan negative for PE. LE venous doppler negative for DVT. Cardiology was consulted but felt unlikely ACS. Plan for medical management. Patient noted to have elevated potassium at the outside hospital.? Here potassium was 6.4.? She is actually not on valsartan so hyperkalemia may be related to diet and renal failure.? She was treated appropriately.? Repeat potassium normalized and has remained stable. She also had acute on chronic kidney failure. Baseline creatinine here was 1.5 last July.? Creatinine 2.4 on admission.? She is not on Entresto per patient but on Bumex.? She also has Aleve p.r.n. and tramadol p.r.n. for pain.? She also had metabolic acidosis which is persistent but with an improved anion gap. She has a history of CHF but clinically euvolemic. She was started on sodium bicarb. CT A/P showing atrophic kidneys and probable renal osteodystrophy. Cr 2.2 today and stable. Discussed with nephrology who felt baseline Cr around 2.0. She has severe protein calorie malnutrition related to inadequate energy intake as evidenced by NFPE findings of severe muscle wasting and SQ fat loss. Patient has multiple bilateral lower extremity leg wounds. There is also a right groin open area probably related to the recent TAVR procedure in March.? She denies that she picks at these wounds.? Consider calciphylaxis.? [facility] [place] [facility] the past.? None appear to be concerning for cellulitis.? Wound care consulted and following. Discussed with nephrology who was also concerned for calciphylaxis. Plastic surgery was consulted and biopsy performed. Also, the patient has known hyperparathyroidism with iPTH 1270 but no longer follows with endocrinology. Patient has chronic systolic and diastolic CHF.? She was on Bumex and Coreg on admission but was not on Entresto.? CXR showed possible mild interstitial pulmonary edema. BNP elevated at outside hospital. She appears clinically euvolemic.? Cardiology followed and appreciate their input.? She is status post TAVR.? Also discovered to have had a graft to the fight femoral artery. Right femoral artery US shows a small hematoma without pseudoaneurysm at the anastomosis of a patent stent in the distal most right common femoral artery. May
[2023-05-31 13:51] VITALS: BP 152/67; PULSE 82; RESP 18; TEMP 36.3; O2SAT 100
--- NOTE | 2023-05-31 15:48 | PC.NURSE ---
Pt agitated when I entered the room. Pt repeatedly requesting dressings to be cut off of her legs so she can get a shower. Pt said she is tired of living and she can't wait for this to be over. I asked pt if she was talking about harming herself to which she said no, even if I did, I wouldn't tell you because you would think I am crazy . I voiced concern over her safety to which she replied she was safe. Pt again requesting dressings off. Explained to pt that as she was stating that she felt weaker than yesterday a shower would not be possible. Pt adamant that she get a shower, but pt was calling for help to get up to the commode this AM. Again, reiterated that pt was a fall risk and that we would need to clean with a bed bath instead. Pt heard a coworker laughing outside the door, and she stated that she was on [place]. She said no one is doing anything to help her, expressed her frustration with her [facility] doctor who didn't provide her care, and was angry I would not give her her bumex, despite the fact that nephrology had discontinued her home med due to her renal function. Educated pt on need to hold med; she stated that she was going to take her own meds when she gets home. Pt then proceeded to take off gown and bend over for me to wipe her. I let pt know that I was in the middle of med pass and that her tech could help her with a bath shortly. Pt refused to sit down, grabbed the bath wipes out of my hand. I asked pt to sit down to clean her, pt refused. Educated pt on fall risk, pt again refused. Pt refused epogen, lovenox and IV fluids. Made charge nurse and MD aware. Received phone call that pt calling diesel dragline operator repeatedly to get [facility]. Pt wanted me to page him overhead. I explained that is only done during emergent situations. Pt pulled chair to doorway to watch for him. While discussing discharge instructions, pt stated that she was going to take her bumex regardless of what the doctors say because she knows when her body needs it. She also stated that she would not be taking her sodium bicarb because it caused her heartburn. Educated pt on need for it, but pt knows her body she stated again. Pt given dressing supplies and encouraged to let her PCP know where she would like to go for future dressing changes. Pt emotional and crying stating to never have heart surgery or she'll end up like this. Reassured pt and answered remaining questions.
--- NOTE | 2023-06-05 07:35 | PC.NURSE ---
Skin biopsy, right thigh, is negative for malignancy. Shows ulcer of skin. Dr. Ariel cintron.
[2023-06-05 11:38] LABS: Hepatitis B Core Ab Total Reactive (Nonreactive)
--- NOTE | 2023-06-20 08:44 | PC.NURSE ---
SKin lesion of right thigh shows ulcer. No malignancy. Faxed to Dr. Duffy's office per Dr. George.
--- OUTSIDE RECORDS SUMMARY | 2023-07-02 11:59 | XMS_ITS | Encounter Summary ---
Author Name Unknown Organization [facility] Address [address] [place] [address] Encounter Details Date Type Department Care Team Description ASSESSMENT No Information TREATMENT PLAN No Information
--- OUTSIDE RECORDS SUMMARY | 2023-07-02 11:59 | XMS_ITS | Encounter Summary ---
Author Name Unknown Organization [facility] Address [address] [place] [address] Encounter Details Date Type Department Care Team Description ASSESSMENT No Information TREATMENT PLAN No Information
--- OUTSIDE RECORDS SUMMARY | 2023-07-02 11:59 | XMS_ITS | Encounter Summary ---
Author Name Unknown Organization [facility] Address [address] [place] [address] Encounter Details Date Type Department Care Team Description ASSESSMENT No Information TREATMENT PLAN No Information
--- OUTSIDE RECORDS SUMMARY | 2023-07-02 11:59 | XMS_ITS | Encounter Summary ---
Author Name Unknown Organization [facility] Address [address] [place] [address] Encounter Details Date Type Department Care Team Description ASSESSMENT No Information TREATMENT PLAN No Information
--- OUTSIDE RECORDS SUMMARY | 2023-07-02 11:59 | XMS_ITS | Encounter Summary ---
Author Name Unknown Organization [facility] Address [address] [place] [address] Encounter Details Date Type Department Care Team Description ASSESSMENT No Information TREATMENT PLAN No Information
--- OUTSIDE RECORDS SUMMARY | 2023-07-02 11:59 | XMS_ITS | Encounter Summary ---
Author Name Unknown Organization [facility] Address [address] [place] [address] Encounter Details Date Type Department Care Team Description ASSESSMENT No Information TREATMENT PLAN No Information
== END 2023-05-31 15:40 | DRG 682 ==
LOC: ANH3MEDSUR 05-30 10:11 → ANHIMU 05-30 10:11
PROVIDERS: Internal Medicine Nephrology; Admitting Provider Internal Medicine; Visit Provider Internal Medicine
DX: N17.9 Acute kidney failure, unspecified (principal); E43 Unspecified severe protein-calorie malnutrition; I13.0 Hypertensive heart and chronic kidney disease with heart failure and stage 1 through stage 4 chronic kidney disease, or unspecified chronic kidney disease; Z68.1 Body mass index [BMI] 19.9 or less, adult; R64 Cachexia; I50.42 Chronic combined systolic (congestive) and diastolic (congestive) heart failure; L97.119 Non-pressure chronic ulcer of right thigh with unspecified severity; E87.20 Acidosis, unspecified; N18.4 Chronic kidney disease, stage 4 (severe); R77.8 Other specified abnormalities of plasma proteins; E87.5 Hyperkalemia; J44.9 Chronic obstructive pulmonary disease, unspecified; M19.011 Primary osteoarthritis, right shoulder; R41.0 Disorientation, unspecified; T50.995A Adverse effect of other drugs, medicaments and biological substances, initial encounter; M19.90 Unspecified osteoarthritis, unspecified site; D63.1 Anemia in chronic kidney disease; Z66 Do not resuscitate; K21.9 Gastro-esophageal reflux disease without esophagitis; Z87.891 Personal history of nicotine dependence; Z90.49 Acquired absence of other specified parts of digestive tract; Z95.2 Presence of prosthetic heart valve
CPT/HCPCS: 36415; 71045; 73030; 73502; 74176; 78582; 80048; 80053; 80069; 80076; 82728; 83540; 83550; 83735; 83970; 84100; 84484; 85025; 85610; 85730; 86704; 86706; 87340; 88305; 93005; 93306; 93926; 93970; 94640; 97161; 97165; 97530; 97535; A9270; A9540; A9558; J0613; J1644; J7030; Q4081